=== PATIENT | male | born 1950 | race Caucasian/White ===

== ENCOUNTER 2017-07-20 15:11 | Emergency (ER) | payer OTHER, BC ==
[2017-07-20 15:28] VITALS: BMI 23.3
--- NOTE | 2017-07-20 15:28 | PDOC ---
History of Present Illness - General History Source: Patient Exam Limitations: No Limitations - History of Present Illness Initial Comments: 07/20/17 15:39 The patient is a 67 year old male, with a significant past medical history of mantle cell lymphoma (last chemo treatment in 10/2016), HTN, and hypercholesterolemia who presents to the emergency department s/p mechanical fall over the curb. The patient reports falling and tripping over a curb earlier today, injuring his bilateral knees, bilateral hands, and head. He denies any LOC. He notes he is not up to date on his tetanus shot. He denies any recent fevers, chills, headache or dizziness. He denies any recent nausea, vomit, diarrhea or constipation. He denies any recent chest pain or shortness of breath. He denies any recent dysuria, frequency, urgency or hematuria. Allergies: NKA Past surgical history: None reported. Social History: Former smoker. Denies EtOH use and recreational drug use. Oncologist: DrDanika Murray PCP: <Wesly Vega - Last Filed: 07/20/17 16:45> <Jarret Spence - Last Filed: 07/20/17 18:28> - General Chief Complaint: Injury Stated Complaint: FALL Time Seen by Provider: 07/20/17 15:27 Past History <Wesly Vega - Last Filed: 07/20/17 16:45> - Past Medical History Cancer: Yes (LYMPHOMA) HTN: Yes Hypercholesterolemia: Yes - Suicide/Smoking/Psychosocial Hx Smoking Status: Yes Smoking History: Never smoked Number of Cigarettes Smoked Daily: 5 Hx Alcohol Use: No Drug/Substance Use Hx: No Substance Use Type: None <Jarret Spence - Last Filed: 07/20/17 18:28> - Past Medical History Allergies/Adverse Reactions: Allergies Allergy/AdvReac Type Severity Reaction Status Date / Time No Known Allergies Allergy Verified 06/23/16 10:23 Home Medications: Ambulatory Orders Amlodipine Besylate 5 mg PO DAILY 07/20/17 Lisdexamfetamine Dimesylate [Vyvanse] 10 mg PO DAILY 07/20/17 Rosuvastatin Calcium [Crestor] 10 mg PO DAILY 07/20/17 Vit B12/Intrinsic Fact/Folate [Intrinsi R79-Dhevea Tablet] 1 each PO DAILY 07/20 Review of Systems - Review of Systems Able to Perform ROS?: Yes Comments:: 07/20/17 15:39 GENERAL/CONSTITUTIONAL: No fever or chills. No weakness. HEAD, EYES, EARS, NOSE AND THROAT: No change in vision. No ear pain or discharge. No sore throat. CARDIOVASCULAR: No chest pain or shortness of breath. RESPIRATORY: No cough, wheezing, or hemoptysis. GASTROINTESTINAL: No nausea, vomiting, diarrhea or constipation. GENITOURINARY: No dysuria, frequency, or change in urination. MUSCULOSKELETAL: +bilateral hand/knee pain. No joint or muscle swelling or pain. No neck or back pain. SKIN: No rash NEUROLOGIC: +head trauma. No headache, vertigo, loss of consciousness, or change in strength/sensation. ENDOCRINE: No increased thirst. No abnormal weight change. HEMATOLOGIC/LYMPHATIC: No anemia, easy bleeding, or history of blood clots. ALLERGIC/IMMUNOLOGIC: No hives or skin allergy. <Wesly Vega - Last Filed: 07/20/17 16:45> *Physical Exam - Vital Signs Last Vital Signs Temp Pulse Resp BP Pulse Ox 98.3 F 112 H 148/92 98 07/20/17 15:15 07/20/17 15:15 07/20/17 15:15 07/20/17 15:15 - Physical Exam Comments: 07/20/17 15:42 GENERAL: Awake, alert, and fully oriented, in no acute distress HEAD: No signs of trauma EYES: PERRLA, EOMI, sclera anicteric, conjunctiva clear ENT: Auricles normal inspection, hearing grossly normal, nares patent, oropharynx clear without exudates. Moist mucosa NECK: Normal ROM, supple, no lymphadenopathy, JVD, or masses LUNGS: Breath sounds equal, clear to auscultation bilaterally. No wheezes, and no crackles HEART: Regular rate and rhythm, normal S1 and S2, no murmurs, rubs or gallops ABDOMEN: Soft, nontender, normoactive bowel sounds. No guarding, no rebound. No masses EXTREMITIES: Normal range of motion, no edema. No clubbing or cyanosis. No cords, erythema, or tenderness NEUROLOGICAL: Cranial nerves II through XII grossly intact. Normal speech, normal gait SKIN: Abrasion both knees and both hands. Large hematoma on the right side of the head with abrasion. Axillary area of the right side of his head. <Wesly Vega - Last Filed: 07/20/17 16:45> Heart Score/ECG Review - ECG Impressions Comment:: 07/20/17 16:45 EKG impressions reported by : Sinus tachycardia at 106 bpm <Wesly Vega - Last Filed: 07/20/17 16:45> Medical Decision Making - Medical Decision Making 07/20/17 15:42 Patient refusing tetanus shot. <Wesly Vega - Last Filed: 07/20/17 16:45> - Medical Decision Making 07/20/17 17:50 Patient has boxers fracture left hand by my interpretation. Actually transverse fracture through the shaft of the Metacarpal #5 Left Hand. Ulnar Gutter Splint applied good vascular flow before and after application. <Jarret Spence - Last Filed: 07/20/17 18:28> *DC/Admit/Observation/Transfer - Attestations Scribe Attestion: 07/20/17 15:39 Documentation prepared by Wesly Vega, acting as medical dermatologist for Jarret Spence MD. <Wesly Vega - Last Filed: 07/20/17 16:45> - Discharge Dispostion Admit: No - Attestations Physician Attestion: 07/20/17 15:27 I, Dr. Jarret Spence, attest that this document has been prepared under my direction and personally reviewed by me in its entirety. I further attest, that it accurately reflects all work, treatment, procedures and medical decision -making performed by me. <Jarret Spence - Last Filed: 07/20/17 18:28> Diagnosis at time of Disposition: Closed boxer's fracture Qualifiers: Encounter type: initial encounter Qualified Code(s): S62.339A - Displaced fracture of neck of unspecified metacarpal bone, initial encounter for closed fracture - Discharge Dispostion Disposition: HOME Condition at time of disposition: Improved - Referrals Referrals: Slade Dior [Primary Care Provider] - Navin Waddell MD [Staff Physician] - - Patient Instructions Printed Discharge Instructions: DI for Boxer's Fracture Additional Instructions: Mr Mercy Gambino this happened to you today. Please follow up with Dr. Waddell ( Orthopedics). Return to us if worse or new symptoms occur. Wear the splint and sling until you see ortho Best- Dr. Jarret Spence - Post Discharge Activity
[2017-07-20] MEDS ORDERED: BACITRACIN 0.9 GM PACKET ONE (16:49)
[2017-07-20 18:57] VITALS: BP 140/89; PULSE 94; TEMP 98.9
--- NOTE | 2017-07-24 11:41 | EKG ---
Test Reason : Blood Pressure : / mmHG Vent. Rate : 106 BPM Atrial Rate : 106 BPM P-R Int : 144 ms QRS Dur : 080 ms QT Int : 326 ms P-R-T Axes : 050 088 046 degrees QTc Int : 433 ms SINUS TACHYCARDIA OTHERWISE NORMAL ECG WHEN COMPARED WITH ECG OF 23-JUN-2016 10:53, VENT. RATE HAS INCREASED BY 40 BPM Confirmed by PHILIPPE PETERSON MD ([id number]) on 07/24/2017 11:40:54 AM Referred By: Confirmed By:PHILIPPE PETERSON MD
== END 2017-07-20 18:58 | disposition home or self-care (01) ==
LOC: JER 15:11
PROC: 2W3DX1Z Immobilization of Left Lower Arm using Splint (ICD-10-PCS; principal; 2017-07-20)
DX: S62.337A Displaced fracture of neck of fifth metacarpal bone, left hand, initial encounter for closed fracture (principal); W10.1XXA Fall (on)(from) sidewalk curb, initial encounter; Y93.89 Activity, other specified; Y92.480 Sidewalk as the place of occurrence of the external cause; Y99.8 Other external cause status; I10 Essential (primary) hypertension; E78.00 Pure hypercholesterolemia, unspecified; C83.10 Mantle cell lymphoma, unspecified site
CPT/HCPCS: 29125; 70450-TC; 73130-TC-LT; 73130-TC-RT; 73562-TC-LT; 73562-TC-RT; 93005; 93010; 99282-25

== ENCOUNTER 2017-08-18 01:04 | Emergency (ER) | payer OTHER, BC ==
[2017-08-18 01:09] VITALS: BP 128/82; PULSE 100; TEMP 98; BMI 23.7
--- NOTE | 2017-08-18 01:11 | PDOC ---
History of Present Illness - General History Source: Patient, Family Exam Limitations: No Limitations - History of Present Illness Initial Comments: 08/18/17 01:45 The patient is a 67 year old male, with a significant past medical history of mantle cell lymphoma (last chemo treatment on 10/2016), hypertension, hypercholesterolemia , who presents to the emergency department status post fall this evening in a parking out. As per the patient's they were leaving dinner and were walking to their car across the parking lot when the patient walked ahead of her. He then tripped and lost his balance, falling backwards, and hitting the back of his head on the pavement. As per the patients this is his second fall in 2 weeks. He has hit the same area on the back of his head in both falls. She reports that she has some neurologic and gait problems and has been recently diagnosed with follicular cancer. The patient denies chest pain, shortness of breath, or palpitation Allergies: NKA. Past surgical history: None reported Social history: Never smoked PCP:Dr. Dior Oncologist: Dr. Dillon Murray <Maria Isabel Evans - Last Filed: 08/18/17 01:45> <Aixa Lugo - Last Filed: 08/18/17 16:30> - General Chief Complaint: Injury Stated Complaint: FALL Time Seen by Provider: 08/18/17 01:10 Past History <Maria Isabel Evans - Last Filed: 08/18/17 01:45> - Past Medical History Cancer: Yes (LYMPHOMA) COPD: No HTN: Yes Hypercholesterolemia: Yes - Suicide/Smoking/Psychosocial Hx Smoking Status: Yes Smoking History: Never smoked Have you smoked in the past 12 months: No Number of Cigarettes Smoked Daily: 5 If you are a former smoker, when did you quit?: 6 yrs Information on smoking cessation initiated: No Hx Alcohol Use: No Drug/Substance Use Hx: No Substance Use Type: None <Aixa Lugo - Last Filed: 08/18/17 16:30> - Past Medical History Allergies/Adverse Reactions: Allergies Allergy/AdvReac Type Severity Reaction Status Date / Time No Known Allergies Allergy Verified 08/18/17 01:08 Home Medications: Ambulatory Orders Amlodipine Besylate 5 mg PO DAILY 07/20/17 Lisdexamfetamine Dimesylate [Vyvanse] 10 mg PO DAILY 07/20/17 Rosuvastatin Calcium [Crestor] 10 mg PO DAILY 07/20/17 Vit B12/Intrinsic Fact/Folate [Intrinsi W15-Wlzmbj Tablet] 1 each PO DAILY 07/20 Bacitracin/Polymyxin B Sulfate [Bacitracin-Polymyxin Ointment] 14.17 gm TP BID # 1 tube 08/18/17 Review of Systems - Review of Systems Able to Perform ROS?: Yes Comments:: 08/18/17 01:46 CONSTITUTIONAL: Absent: fever, no chills, no fatigue EYES: Absent: visual changes ENT: Absent: ear pain, no sore throat CARDIOVASCULAR: Absent: chest pain, no palpitations RESPIRATORY: Absent: cough, no SOB GI: Absent: abdominal pain, no nausea, no vomiting, no constipation, no diarrhea GENITOURINARY: Absent: dysuria, no frequency, no hematuria MUSCULOSKELETAL: Absent: back pain, no arthralgia, no myalgia SKIN:+bleeding to back of the head status post fall Absent: rash NEURO: Absent: headache <Maria Isabel Evans - Last Filed: 08/18/17 01:45> *Physical Exam - Vital Signs Last Vital Signs Temp Pulse Resp BP Pulse Ox 98.0 F 100 H 20 128/82 99 08/18/17 01:08 08/18/17 01:08 08/18/17 01:08 08/18/17 01:08 08/18/17 01:08 - Physical Exam Comments: 08/18/17 01:46 GENERAL: Well-appearing, well-nourished. No apparent distress. HEENT: Normocephalic, atraumatic. PERRL, EOM intact. CARDIOVASCULAR: Normal S1, S2. Regular rate and rhythm. PULMONARY: Clear to auscultation bilaterally. ABDOMEN: Soft, non-distended, non-tender. EXTREMITIES: Normal ROM in all four extremities. No gross deformities. SKIN: +4 cm laceration to the back of the head Warm, dry. No rash NEUROLOGICAL: +gait problems <Maria Isabel Evans - Last Filed: 08/18/17 01:45> - Vital Signs Last Vital Signs Temp Pulse Resp BP Pulse Ox 98.0 F 100 H 20 128/82 99 08/18/17 01:08 08/18/17 01:08 08/18/17 01:08 08/18/17 01:08 08/18/17 01:08 <Aixa Lugo - Last Filed: 08/18/17 16:30> Procedures - Laceration/Wound Repair Occipital Wound Length: 2.6 to 5.0 cm Wound Explored: clean Wound's Depth, Shape: linear Irrigated w/ Saline: Yes Betadine Prep: No Amount of Anesthetic (ccs): 5 Wound Debrided: minimal Wound Repaired With: Sutures Suture Size/Type: 3:0 Number of Sutures: 6 Layer Closure: No Sterile Dressing Applied: No Splint Applied: No Sling Applied: No <Aixa Lugo - Last Filed: 08/18/17 16:30> *DC/Admit/Observation/Transfer - Attestations Scribe Attestion: 08/18/17 01:46 Documentation prepared by THU Floyd, acting as medical clerical assistant for Aixa Lugo MD. <Maria Isabel Evans - Last Filed: 08/18/17 01:45> <Aixa Lugo - Last Filed: 08/18/17 16:30> Diagnosis at time of Disposition: Head trauma, Occipital scalp laceration - Discharge Dispostion Disposition: HOME Condition at time of disposition: Improved - Prescriptions Prescriptions: Bacitracin/Polymyxin B Sulfate [Bacitracin-Polymyxin Ointment] 14.17 gm TP BID # 1 tube - Referrals Referrals: Slade Dior [Non Staff, Medical] - - Patient Instructions Printed Discharge Instructions: DI for Laceration Repair -- Simple, DI for Closed Head Injury Additional Instructions: Return to the emergency department immediately with ANY new, persistent or worsening symptoms including any redness, bleeding, purulent discharge, swelling or other concerns. Keep the area clean and dry for 48 hours. Afterwards he may clean gently with soap and water. Apply bacitracin twice a day. Keep the area away from the sun for the next 9 months, please use sunscreen and wear a hat if you need to be in the sun to improve appearance of the scar. Return in 7-10 days for suture removal. You MUST call and follow up with your doctor tomorrow for further evaluation of your symptoms. Results were discussed with you. Please make sure your doctor reviews the results of your emergency evaluation. Print Language: PORTUGUESE
--- NOTE | 2017-08-18 02:17 | PDOC ---
*Physical Exam - Vital Signs Last Vital Signs Temp Pulse Resp BP Pulse Ox 98.0 F 100 H 20 128/82 99 08/18/17 01:08 08/18/17 01:08 08/18/17 01:08 08/18/17 01:08 08/18/17 01:08 Medical Decision Making - Medical Decision Making 08/18/17 02:16 pt signed out to me from Dr. Lugo pt is a 67y M hx of mantle cell lymphoma, htn, hl, presents s/p mechanical fall as they were leaving a restaurant. Tripped and fell, falling backards and hitting his head. No LOC, headache, vision changes, numbness/tingling weakness. Pt is awaiting CT laceration was closed by Dr. Lugo 08/18/17 02:23 ct head and cspine neg will dc the pt home with pmd fu return in 7-10 days for suture removal I discussed the physical exam findings, ancillary test results and final diagnoses with the patient. I answered all of the patient's questions. The patient was satisfied with the care received and felt comfortable with the discharge plan and treatment plan. The patient will call their primary care physician within 24 hours to arrange follow-up and will return to the Emergency Department with any new, persistent or worsening symptoms. *DC/Admit/Observation/Transfer Diagnosis at time of Disposition: Head trauma Qualifiers: Encounter type: initial encounter Qualified Code(s): S09.90XA - Unspecified injury of head, initial encounter Occipital scalp laceration Qualifiers: Encounter type: initial encounter Qualified Code(s): S01.01XA - Laceration without foreign body of scalp, initial encounter - Discharge Dispostion Disposition: HOME Condition at time of disposition: Improved Admit: No - Referrals Referrals: Slade Dior [Non Staff, Medical] - - Patient Instructions Printed Discharge Instructions: DI for Closed Head Injury, DI for Laceration Repair -- Simple Additional Instructions: Return to the emergency department immediately with ANY new, persistent or worsening symptoms including any redness, bleeding, purulent discharge, swelling or other concerns. Keep the area clean and dry for 48 hours. Afterwards he may clean gently with soap and water. Apply bacitracin twice a day. Keep the area away from the sun for the next 9 months, please use sunscreen and wear a hat if you need to be in the sun to improve appearance of the scar. Return in 7-10 days for suture removal. You MUST call and follow up with your doctor tomorrow for further evaluation of your symptoms. Results were discussed with you. Please make sure your doctor reviews the results of your emergency evaluation. Print Language: MONGOLIAN - Post Discharge Activity
== END 2017-08-18 02:39 | disposition home or self-care (01) ==
LOC: JER 01:04
PROC: 0HQ0XZZ Repair Scalp Skin, External Approach (ICD-10-PCS; principal; 2017-08-18)
DX: S01.01XA Laceration without foreign body of scalp, initial encounter (principal); W18.39XA Other fall on same level, initial encounter; Y93.89 Activity, other specified; Y92.481 Parking lot as the place of occurrence of the external cause; Y99.8 Other external cause status; C82.90 Follicular lymphoma, unspecified, unspecified site
CPT/HCPCS: 12002-25; 70450-TC; 72125-TC; 99281-25

== ENCOUNTER 2018-12-12 11:01 | Emergency (ER) | payer OTHER, BC ==
[2018-12-12 11:10] VITALS: TEMP 97.3; BMI 24.1
[2018-12-12 12:59] LABS: BASO % 0.8 % (0-2.0); EOS % 2.4 % (0-4.5); HEMATOCRIT 37.1 % (35.4-49); HEMOGLOBIN 12.6 GM/dL (11.7-16.9); LYMPH % 12.3 % (8-40); MCH 29.7 pg (25.7-33.7); MCHC 34.1 g/dl (32.0-35.9); MEAN CELL VOLUME 87.1 fl (80-96); MEAN PLT VOLUME 7.5 fl (7.5-11.1); MONO % 6.7 % (3.8-10.2); NEUT % 77.8 % (42.8-82.8); PLATELET COUNT 223 K/MM3 (134-434); RBC 4.25 M/mm3 (4.00-5.60); RDW 13.4 % (11.9-15.9); WHITE BLOOD COUNT 7.2 K/mm3 (4.0-10.0)
--- NOTE | 2018-12-12 13:07 | PDOC ---
History of Present Illness - General Chief Complaint: Hematuria Stated Complaint: BLOOD IN URINE Time Seen by Provider: 12/12/18 11:25 History Source: Patient, Spouse Exam Limitations: No Limitations Past History - Past Medical History Allergies/Adverse Reactions: Allergies Allergy/AdvReac Type Severity Reaction Status Date / Time No Known Allergies Allergy Verified 08/18/17 01:08 Home Medications: Ambulatory Orders Rosuvastatin Calcium [Crestor] 10 mg PO DAILY 07/20/17 Vit B12/Intrinsic Fact/Folate [Intrinsi F83-Qivurw Tablet] 1 each PO DAILY 07/20 Finasteride [Proscar] 0 mg PO DAILY 12/12/18 Cancer: Yes (LYMPHOMA) COPD: No HTN: Yes Hypercholesterolemia: Yes - Immunization History Immunization Up to Date: Yes - Suicide/Smoking/Psychosocial Hx Smoking Status: Yes Smoking History: Former smoker Have you smoked in the past 12 months: No Number of Cigarettes Smoked Daily: 5 If you are a former smoker, when did you quit?: 2013 Information on smoking cessation initiated: No Hx Alcohol Use: No Drug/Substance Use Hx: No Substance Use Type: None *Physical Exam - Vital Signs Last Vital Signs Temp Pulse Resp BP Pulse Ox 97.3 F L 98 H 17 122/77 98 12/12/18 11:04 12/12/18 11:04 12/12/18 11:04 12/12/18 11:04 12/12/18 11:04 - Physical Exam General Appearance: No: Apparent Distress Respiratory/Chest: positive: Lungs Clear, Normal Breath Sounds. negative: Respiratory Distress Cardiovascular: positive: Regular Rhythm, Regular Rate, S1, S2. negative: Murmur Gastrointestinal/Abdominal: positive: Normal Bowel Sounds, Soft. negative: Tender, Distended, Guarding, Rebound Rectal Exam: positive: other (+brown stool with blood, no melena, no hemorrhoids noted). negative: melena, hemorrhoids Musculoskeletal: negative: CVA Tenderness Integumentary: positive: Normal Color Neurologic: positive: Alert, Normal Mood/Affect ED Treatment Course - LABORATORY CBC & Chemistry Diagram: 12/12/18 17:50 12/12/18 12:17 - ADDITIONAL ORDERS Additional order review: Laboratory Results 12/12/18 11:52 Stool Occult Blood Positive Medical Decision Making - Medical Decision Making 68 y/o M with hx of mantle cell lymphoma dx 2014 (in remission), follicular cell lymphoma dx 2018 s/p XRT 07/2018, HTN, HLD presents with dark urine x 1 week, but was concerned as it was urine was really dark today. Also noted patient with spots of blood on diaper 2 days ago and again yesterday. Patient had visiting nurse who evaluated patient and did not note any hemorrhoids, but advised patient get evaluated. Denies fever, chills, sob, cp, abd pain, n/v/d, dysuria, hematuria. Last colonscopy was 4 years ago which was normal per patient's . Patient is not taking any blood thinners Rectal bleeding, dark urine Plan: Labs, UA, UCx, coags, T&S, guaiac 12/12/18 13:01 Labs reviewed - Hgb and Hct stable Guaiac positive UA negative for infection Notable for elevated liver enzymes D/W, Dr. Arroyo, who is covering for patient's PCP, Dr. Dior - per her review of records, last labs drawn on 10/16/18 showed normal LFTs Also d/w oncologist, Dr. Kinney (covering for patient's oncologist, Dr. Murray, in [place]) - also mentions LFTs from last year were normal; LFTs are unlikely to be elevated from patient's cancer Will get RUQ sono to further assess In regarding to rectal bleeding, patient appears hemodynamically stable; will get repeat CBC and if stable, likely DC with outpatient f/u with his PCP 12/12/18 17:01 RUQ sono shows gallstones; CBD is normal in size Patient with no abdominal pain, n/v; patient had tray of food which he tolerated well Not suspicious for obstructive pathology Will refer to GI for further eval of sxs Repeat CBC shows stable Hgb/Hct Patient has f/u at [place]; stable for dc Return precautions were given 12/12/18 18:40 *DC/Admit/Observation/Transfer Diagnosis at time of Disposition: Rectal bleeding - Discharge Dispostion Disposition: HOME Condition at time of disposition: Stable Decision to Admit order: No - Referrals Referrals: Slade Dior [Primary Care Provider] - 2 Days Marilynn Graves DO [Staff Physician] - 2 Days - Patient Instructions Printed Discharge Instructions: DI for Rectal Bleeding, DI for Gallstones Additional Instructions: Thank you for choosing [facility]. It was a pleasure taking care of you. You were incidentally noted with elevated liver enzymes You had ultrasound done which showed gallstones You were referred to GI doctor for further evaluation Please be sure to also follow-up with your PCP and oncologist. Return to the Emergency Department if your symptoms worsen or persist, you have fever, shortness of breath, chest pain, severe abdominal pain, vomiting, change in color of skin (appearing yellow), heavy rectal bleeding, black stools or other concerning symptoms. - Post Discharge Activity
[2018-12-12 13:26] LABS: ALBUMIN 3.5 g/dl (3.4-5.0); ALK PHOS 203 U/L (45-117); ANION GAP 5 MMOL/L (8-16); BILIRUBIN,TOTAL 0.9 mg/dL (0.2-1); BLOOD UREA NITROGEN 13 mg/dL (7-18); CHLORIDE 107 mmol/L (98-107); CO2 28 mmol/L (21-32); CREATININE 0.9 mg/dL (0.55-1.3); GLUCOSE,RANDOM 96 mg/dL (74-106); SGOT/AST 237 U/L (15-37); SGPT/ALT 363 U/L (13-61); SODIUM 139 mmol/L (136-145); TOT PROT 7.1 g/dl (6.4-8.2)
[2018-12-12 13:46] LABS: URINE APPEARANCE CLEAR; URINE BILIRUBIN 1+ (NEGATIVE); URINE COLOR DK YELLOW; URINE GLUCOSE (UA) NEGATIVE (NEGATIVE); URINE KETONE TRACE (NEGATIVE); URINE LEUK ESTERASE NEGATIVE (NEGATIVE); URINE NITRITE NEGATIVE (NEGATIVE); URINE PROTEIN NEGATIVE (NEGATIVE)
[2018-12-12 14:46] LABS: INR 0.99 (0.83-1.09); PROTHROMBIN TIME (PATIENT) 11.7 SEC (9.7-13.0)
[2018-12-12 14:49] LABS: ACTIVATED PTT 26.3 SECONDS (25.2-36.5)
[2018-12-12] MEDS ORDERED: SODIUM CHLORIDE 0.9% 1000 ML INFUS.BAG IV ONE (16:21)
--- NOTE | 2018-12-12 17:42 | PDOC ---
*Physical Exam - Vital Signs Last Vital Signs Temp Pulse Resp BP Pulse Ox 97.3 F L 98 H 17 122/77 98 12/12/18 11:04 12/12/18 11:04 12/12/18 11:04 12/12/18 11:04 12/12/18 11:04 - Physical Exam General Appearance: Yes: Nourished Respiratory/Chest: positive: Lungs Clear, Normal Breath Sounds Cardiovascular: positive: Regular Rhythm, Regular Rate, S1, S2 Gastrointestinal/Abdominal: positive: Normal Bowel Sounds, Flat, Soft. negative : Tender Musculoskeletal: positive: Normal Inspection Extremity: positive: Normal Capillary Refill, Normal Inspection, Normal Range of Motion ED Treatment Course - LABORATORY CBC & Chemistry Diagram: 12/12/18 12:17 12/12/18 12:17 - ADDITIONAL ORDERS Additional order review: Laboratory Results 12/12/18 12/12/18 12/12/18 13:21 12:17 12:17 PT with INR 11.70 INR 0.99 PTT (Actin FS) 26.3 Sodium Potassium Chloride Carbon Dioxide Anion Gap BUN Creatinine Creat Clearance w eGFR Random Glucose Calcium Total Bilirubin AST ALT Alkaline Phosphatase Total Protein Albumin Urine Color Dk yellow Urine Appearance Clear Urine pH 5.0 Ur Specific [place] 1.022 Urine Protein Negative Urine Glucose (UA) Negative Urine Ketones Trace H Urine Blood Negative Urine Nitrite Negative Urine Bilirubin 1+ H Urine Urobilinogen 1.0 Ur Leukocyte Esterase Negative Stool Occult Blood Blood Type A POSITIVE Antibody Screen Negative 12/12/18 12/12/18 12:17 11:52 PT with INR INR PTT (Actin FS) Sodium 139 Potassium 4.0 Chloride 107 Carbon Dioxide 28 Anion Gap 5 L BUN 13 Creatinine 0.9 Creat Clearance w eGFR 83.67 Random Glucose 96 Calcium 9.0 Total Bilirubin 0.9 AST 237 H ALT 363 H Alkaline Phosphatase 203 H Total Protein 7.1 Albumin 3.5 Urine Color Urine Appearance Urine pH Ur Specific [place] Urine Protein Urine Glucose (UA) Urine Ketones Urine Blood Urine Nitrite Urine Bilirubin Urine Urobilinogen Ur Leukocyte Esterase Stool Occult Blood Positive Blood Type Antibody Screen 12/12/18 12:17 RBC 4.25 MCV 87.1 MCHC 34.1 RDW 13.4 MPV 7.5 Neutrophils % 77.8 D Lymphocytes % 12.3 D Monocytes % 6.7 Eosinophils % 2.4 Basophils % 0.8 *DC/Admit/Observation/Transfer - Referrals Referrals: Slade Dior [Primary Care Provider] - - Patient Instructions - Post Discharge Activity
[2018-12-12 18:09] LABS: BASO % 1.2 % (0-2.0); EOS % 3.9 % (0-4.5); HEMATOCRIT 35.9 % (35.4-49); HEMOGLOBIN 12.4 GM/dL (11.7-16.9); LYMPH % 22.5 % (8-40); MCH 30.1 pg (25.7-33.7); MCHC 34.7 g/dl (32.0-35.9); MEAN CELL VOLUME 86.8 fl (80-96); MEAN PLT VOLUME 7.3 fl (7.5-11.1); MONO % 7.9 % (3.8-10.2); NEUT % 64.5 % (42.8-82.8); PLATELET COUNT 211 K/MM3 (134-434); RBC 4.13 M/mm3 (4.00-5.60); RDW 13.1 % (11.9-15.9); WHITE BLOOD COUNT 6.8 K/mm3 (4.0-10.0)
[2018-12-12 18:50] VITALS: BP 158/88; PULSE 89
== END 2018-12-12 18:52 | disposition home or self-care (01) ==
LOC: JER 11:01
DX: K62.5 Hemorrhage of anus and rectum (principal); K80.20 Calculus of gallbladder without cholecystitis without obstruction; I10 Essential (primary) hypertension; E78.5 Hyperlipidemia, unspecified; C82.90 Follicular lymphoma, unspecified, unspecified site; Z85.72 Personal history of non-Hodgkin lymphomas; Z87.891 Personal history of nicotine dependence
CPT/HCPCS: 36415; 76705-TC; 80053; 81003; 82272; 85025; 85610; 85730; 86850; 86900; 86901; 87086; 99282-25

== ENCOUNTER 2019-03-09 21:18 | Inpatient (IN) | payer OTHER, BC ==
--- NOTE | 2019-03-10 00:09 | PDOC ---
Documentation entered by Tuan Hayes SCRIBE, acting as scribe for Aixa Lugo MD. Aixa Lugo MD: This documentation has been prepared by the Freddy simon Joel, SCRIBE, under my direction and personally reviewed by me in its entirety. I confirm that the documentation accurately reflects all work, treatment, procedures, and medical decision making performed by me. History of Present Illness - General Stated Complaint: FELL Time Seen by Provider: 03/09/19 21:40 History Source: Patient, Spouse Exam Limitations: No Limitations - History of Present Illness Initial Comments: 03/09/19 21:53 The patient is a 69 year old male with a significant PMH of mantle cell lymphoma , follicular cell lymphoma (s/p XRT in 2018), HTN, hyperlipidemia, and legal R eye blindness who presents to the emergency department s/p fall prior to arrival. The patients states the patient was walking to the bathroom when he fell. He denies hitting his head or LOC. She notes the patient often ambulates very little and is usually wheelchair bound. The patient denies any pain or other complaints. The patient denies chest pain, shortness of breath, headache and dizziness. Denies fever, chills, nausea, vomit, diarrhea and constipation. Denies dysuria, frequency, urgency and hematuria. Allergies: NKA Past surgical history: None reported. Social history: Former smoker. No reported alcohol or drug use. PCP: [facility] Past History - Past Medical History Allergies/Adverse Reactions: Allergies Allergy/AdvReac Type Severity Reaction Status Date / Time No Known Allergies Allergy Verified 08/18/17 01:08 Home Medications: Ambulatory Orders Rosuvastatin Calcium [Crestor] 10 mg PO DAILY 07/20/17 Vit B12/Intrinsic Fact/Folate [Intrinsi T33-[id number] Tablet] 1 each PO DAILY 07/20 Finasteride [Proscar] 0 mg PO DAILY 12/12/18 Cancer: Yes (LYMPHOMA) COPD: No HTN: Yes Hypercholesterolemia: Yes - Immunization History Immunization Up to Date: Yes - Suicide/Smoking/Psychosocial Hx Smoking Status: Yes Smoking History: Former smoker Have you smoked in the past 12 months: No Number of Cigarettes Smoked Daily: 5 If you are a former smoker, when did you quit?: 2013 Hx Alcohol Use: No Drug/Substance Use Hx: No Substance Use Type: None Review of Systems - Review of Systems Able to Perform ROS?: Yes Comments:: 03/09/19 21:54 GENERAL/CONSTITUTIONAL: No fever or chills. No weakness. HEAD, EYES, EARS, NOSE AND THROAT: No change in vision. No ear pain or discharge. No sore throat. CARDIOVASCULAR: No chest pain or shortness of breath. RESPIRATORY: No cough, wheezing, or hemoptysis. GASTROINTESTINAL: No nausea, vomiting, diarrhea or constipation. GENITOURINARY: No dysuria, frequency, or change in urination. MUSCULOSKELETAL: No joint or muscle swelling or pain. No neck or back pain. SKIN: No rash NEUROLOGIC: No headache, vertigo, loss of consciousness, or change in strength/ sensation. ENDOCRINE: No increased thirst. No abnormal weight change. HEMATOLOGIC/LYMPHATIC: No anemia, easy bleeding, or history of blood clots. ALLERGIC/IMMUNOLOGIC: No hives or skin allergy. *Physical Exam - Physical Exam Comments: 03/09/19 21:54 GENERAL: Awake, alert, and fully oriented, in no acute distress HEAD: No signs of trauma EYES: Pinpoint pupils, reactive. Legally blind in R eye. EOMI, sclera anicteric , conjunctiva clear ENT: Auricles normal inspection, hearing grossly normal, nares patent, oropharynx clear without exudates. Moist mucosa NECK: Normal ROM, supple, no lymphadenopathy, JVD, or masses. No cervical midline tenderness. LUNGS: Breath sounds equal, clear to auscultation bilaterally. No wheezes, and no crackles HEART: Regular rate and rhythm, normal S1 and S2, no murmurs, rubs or gallops ABDOMEN: Soft, nontender, normoactive bowel sounds. No guarding, no rebound. No masses. EXTREMITIES: Normal range of motion, no edema. No clubbing or cyanosis. No cords, erythema, or tenderness. NEUROLOGICAL: (+) Chronic bilateral LE weakness. Cranial nerves II through XII grossly intact. Normal speech. SKIN: (+) L hand ecchymosis to dorsal aspect. (+) Lesion on R forearm. (+) Chronic plaque like skin lesion to R foot. No hematomas. No abrasions. No lacerations. ED Treatment Course - LABORATORY CBC & Chemistry Diagram: 03/10/19 00:35 03/10/19 00:35 Medical Decision Making - Medical Decision Making 03/10/19 00:06 69-year-old male brought in by ambulance from home after he fell walking to the bathroom to take a shower. Patient arrives in his bath robe and is in no acute distress. The stated upon arrival that she wanted him admitted to a facility because she can no longer care for him. She said she recently was diagnosed with cancer herself and she is going for an infusion tomorrow and cannot care for him anymore. She states that the patient is not ambulatory anymore and requires a wheelchair. She states that [facility] and at that time they were given several options for further care for his cancer treatment ,but she said the options were too invasive and so they declined. The patient was seen here in November and found have elevated LFTs and some blood in his stool The states that he does have lesions in his liver. When asked, patient states he did not have any specific complaints. Review of systems negative for fever or chills or nausea or vomiting or diarrhea or chest pain or shortness of breath or cough 03/10/19 00:09 said that he fell and he hit his head, so a CAT scan of the head and cervical spine were done and there were no acute findings. CT scan of the head did not show any acute infarct or bleed or skull fracture. CT of the cervical spine was negative for subluxation or acute fracture 03/10/19 00:10 plan labs will be obtained to see if this any acute metabolic disturbance and also consult will have to obtained in the morning with the social science analyst for placement options 03/10/19 02:11 pt found to have GI bleed with hbg=7.9 and hct=22 pt admitted for blood transfusion /med surg *DC/Admit/Observation/Transfer Diagnosis at time of Disposition: GI bleed Qualifiers: GI bleed type/associated pathology: unspecified gastrointestinal hemorrhage type Qualified Code(s): K92.2 - Gastrointestinal hemorrhage, unspecified Lymphoma Qualifiers: Lymphoma type: unspecified type Lymphoma site: unspecified region Qualified Code(s): C85.90 - Non-Hodgkin lymphoma, unspecified, unspecified site Anemia Qualifiers: Anemia type: other cause Other causes of anemia: other cause, not classified Qualified Code(s): D64.89 - Other specified anemias - Discharge Dispostion Condition at time of disposition: Fair Decision to Admit order: Yes - Referrals - Patient Instructions - Post Discharge Activity
[2019-03-10 00:59] LABS: BASO % 1.1 % (0-2.0); EOS % 2.2 % (0-4.5); HEMATOCRIT 22.4 % (35.4-49); HEMOGLOBIN 7.9 GM/dL (11.7-16.9); LYMPH % 18.5 % (8-40); MCH 36.6 pg (25.7-33.7); MCHC 35.4 g/dl (32.0-35.9); MEAN CELL VOLUME 103.3 fl (80-96); MONO % 8.1 % (3.8-10.2); NEUT % 70.1 % (42.8-82.8); PLATELET COUNT 216 K/MM3 (134-434); RBC 2.17 M/mm3 (4.00-5.60); RDW 14.9 % (11.9-15.9); WHITE BLOOD COUNT 7.5 K/mm3 (4.0-10.0)
[2019-03-10] MEDS: SODIUM CHLORIDE 1,000 ML IV SCH ×3 (01:13→23:59)
[2019-03-10] MEDS ORDERED: PANTOPRAZOLE SODIUM 40 MG VIAL IVPUSH ONE (01:27)
[2019-03-10 01:39] LABS: ALBUMIN 3.4 g/dl (3.4-5.0); BILIRUBIN,TOTAL 1.5 mg/dL (0.2-1); BLOOD UREA NITROGEN 15.3 mg/dL (7-18); CALCIUM 8.7 mg/dL (8.5-10.1); CREATININE 0.9 mg/dL (0.55-1.3); POTASSIUM 3.9 mmol/L (3.5-5.1); TOT PROT 6.3 g/dl (6.4-8.2)
[2019-03-10] MEDS ORDERED: PANTOPRAZOLE SODIUM 40 MG/100 ML BAG IVPB ONE (01:56)
--- NOTE | 2019-03-10 02:24 | PN ---
Teaching Attending Note Name of Resident: Clarence Escamilla ATTENDING PHYSICIAN STATEMENT I saw and evaluated the patient. I reviewed the resident's note and discussed the case with the resident. I agree with the resident's findings and plan as documented. SUBJECTIVE: Patient is a 69 year old [place] with a PMH of Mantle cell lymphoma, Follicular cell lymphoma, HTN, Hematuria, Hyperlipidemia and Legally blind in right eye presents to the ER after a fall. The patients states the patient was walking to the bathroom when he fell. He denies hitting his head or LOC. She notes the patient often ambulates very little and is usually wheelchair bound. The patient denies chest pain, shortness of breath, headache and dizziness. Denies fever, chills, nausea, vomit, diarrhea and constipation. Denies dysuria, frequency, urgency and hematuria. OBJECTIVE: Alert Vital Signs Period Temp Pulse Resp BP Sys/Jimenez Pulse Ox Last 24 Hr 98.9 F 96 20 158/83 95 HEENT: No Jaundice, eye redness or discharge, PERRLA, EOMI. Normocephalic, atraumatic. External ears are normal and hearing is grossly intact. No nasal discharge. Neck: Supple, nontender. No palpable adenopathy or thyromegaly. No JVD Chest: Good effort. Clear to auscultation and percussion. Heart: Regular. No S3, rub or murmur Abdomen: Not distended, soft, nontender and no HSM. No rebound or guarding. Normal bowel sounds. Ext: Peripheral pulses intact. No leg edema. No hemorrhoids on rectal examination. Has blood on the diapers. Skin: Warm and dry. No petechiae or rash. Ecchymosis on left hand and right forearm. Plaque-like skin lesion on right foot. Neuro: Alert. Oriented x3. CN 2-12 grossly intact. Sensation grossly intact in all four extremities; lower extremity weakness and ataxia. Plantar reflexes are flexor. Psych: Appropriate mood and affect. Good insight. Current Medications Generic Name Dose Route Start Last Admin Trade Name Freq PRN Reason Stop Dose Admin Sodium Chloride 1,000 mls @ 125 mls/hr 03/10/19 00:15 03/10/19 01:13 Normal Saline - IV 125 mls/hr ASDIR AMANDA Administration Home Medications Medication Instructions Recorded Rosuvastatin Calcium [Crestor] 10 mg PO DAILY 07/20/17 Vit B12/Intrinsic Fact/Folate 1 each PO DAILY 07/20/17 [Intrinsi R89-Osargp Tablet] Finasteride [Proscar] 0 mg PO DAILY 12/12/18 Abnormal Lab Results 03/10/19 03/10/19 03/10/19 00:35 00:35 00:35 RBC 2.17 L Hgb 7.9 L Hct 22.4 L D MCV 103.3 H MCH 36.6 H D MPV 7.0 L Chloride 108 H Total Bilirubin 1.5 H AST 56 H Total Protein 6.3 L Crossmatch See Detail ASSESSMENT AND PLAN: 1. Fall/GI bleeding - Etiology of fall is unclear. Possibly had a vasovagal event or othrostasis due to symptomatic blood loss anemia. No acute abnormality on noncontrast head CT. Noncontrast C-spine CT didnot show any fracture/ subloxation, but showed two semisolid right pulmonary nodules. Will get lumbosacral MRI to investigate recent frequent falls. Will do neurochecks and implement seizure, fall and aspiration precautions. Anemia may be due to lower GI bleeding. Will keep him NPO. Macrocytosis may be independent of the severe anemia. Will get iron studies, vitamin B12 and folate levels. Transfuse PRBC and give IV iron after confirming intensity of iron deficiency. Consult GI. Continue comprehensive care of all his comorbid conditions. Out patient referral to Pulmonary for further workup of pulmonary nodules. 2. Hypertension - Restart suitable outpatient antihypertensive drugs when clinically appropriate. Revise regimen to ensure [id number] excellent BP control and executive assistant to general counsel patient on the injurious effects of uncontrolled hypertension. Nonpharmacologic measures to control hypertension like weight loss , salt restriction and exercise discussed. Importance of adherence to treatment regimen and attainment of normotension emphasized. 3. DVT prophylaxis - SCD 4. Advance directives - Full code
--- NOTE | 2019-03-10 03:40 | HP ---
CHIEF COMPLAINT: fall PCP: HISTORY OF PRESENT ILLNESS: 69M w/ pmh of mantle cell lymphoma, follicular cell lymphoma(s/p chemotherapy x6 sessions, last in January 2018; stopped due to effects on brain; states that he doesn't need anymore tx), HTN, HLD, h/o +FOBT, blindness in Right eye; BIBA after mechanical fall when walking to the shower, no LOC or hit his head. States that neither his or him had the strength to get back up. Prior to episode, denies NEELY/dizziness/CP/palpitations/SOB. Denies sick contacts. Has fallen 4-5x in the past year w/o LOC. Had colonoscopy last month and noted polyps. Lost 7lbs in 1 year. Never had EGD. Denies chronic NSAID usage. Denies hematemesis, hematachezia, melena. At baseline, has difficulty with ambulation and uses walker, wears a diaper and has a bedside urinal. 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 ER course was notable for: (1) Hgb 7.9, ordered pRBC but not administered Recent Travel: travelled [place], one month prior PAST MEDICAL HISTORY: mantle cell lymphoma, follicular cell lymphoma(s/p chemotherapy x6 sessions, last in January 2018; stopped due to effects on brain; states that he doesn't need anymore tx), HTN, HLD, h/o +FOBT, blindness in Right eye PAST SURGICAL HISTORY: none Social History: Smoking: quit 5ys prior, smoked 10cig/d for 15-20ys Alcohol: social beer drinking Drugs: denies Family History: denies Allergies No Known Allergies Allergy (Verified 08/18/17 01:08) HOME MEDICATIONS: Home Medications Medication Instructions Recorded Rosuvastatin Calcium [Crestor] 10 mg PO DAILY 07/20/17 Vit B12/Intrinsic Fact/Folate 1 each PO DAILY 07/20/17 [Intrinsi [id number]-[id number] Tablet] Finasteride [Proscar] 5 mg PO DAILY 12/12/18 REVIEW OF SYSTEMS CONSTITUTIONAL: lost 7lbs in one year Absent: fever, chills, diaphoresis, generalized weakness, malaise, loss of appetite HEENT: Absent: rhinorrhea, nasal congestion, throat pain, throat swelling, difficulty swallowing, mouth swelling, ear pain, eye pain, visual changes CARDIOVASCULAR: Absent: chest pain, syncope, palpitations, irregular heart rate, lightheadedness , peripheral edema RESPIRATORY: Absent: cough, shortness of breath, dyspnea with exertion, orthopnea, wheezing, stridor, hemoptysis GASTROINTESTINAL: Absent: abdominal pain, abdominal distension, nausea, vomiting, diarrhea, constipation, melena, hematochezia GENITOURINARY: Absent: dysuria, frequency, urgency, hesitancy, hematuria MUSCULOSKELETAL: weakness in the BLE Absent: myalgia, arthralgia, joint swelling, back pain, neck pain SKIN: Absent: rash, itching, pallor HEMATOLOGIC/IMMUNOLOGIC: Absent: easy bleeding, easy bruising, lymphadenopathy, frequent infections ENDOCRINE:unexplained weight loss, Absent: unexplained weight gain NEUROLOGIC: unsteady gait Absent: headache, focal weakness or paresthesias, dizziness, seizure, mental status changes, bladder or bowel incontinence PHYSICAL EXAMINATION Vital Signs - 24 hr 03/09/19 03/10/19 21:30 03:00 Temperature 98.9 F Pulse Rate 96 H Pulse Rate [ 93 H Right] Respiratory 20 20 Rate Blood Pressure 158/83 Blood Pressure 155/85 [Right Arm] O2 Sat by Pulse 95 95 Oximetry (%) GENERAL: Awake, A&Ox3, in no acute distress. HEAD: Normal with no signs of trauma. EYES: Pupils equal, round and reactive to light, extraocular movements intact, sclera anicteric, conjunctiva clear. EARS, NOSE, THROAT: Ears normal, nares patent, oropharynx clear without exudates. Moist mucous membranes. NECK: Normal range of motion, supple without lymphadenopathy, JVD, or masses. LUNGS: Breath sounds equal, clear to auscultation bilaterally. No wheezes, and no crackles. No accessory muscle use. HEART: Regular rate and rhythm, normal S1 and S2 without murmur, rub or gallop. ABDOMEN: Soft, nontender, not distended, normoactive bowel sounds, no guarding, no rebound, no masses. No hepatomegaly or splenomegaly. RECTAL: streaks of dried blood on diaper, intergluteal scarring, excess perianal mucosa, no internal hemorrhoids note, good rectal tone, no bright red blood on glvoe, thin liquid stool MUSCULOSKELETAL: Normal range of motion at all joints. No bony deformities or tenderness. No CVA tenderness. UPPER EXTREMITIES: 2+ pulses, warm, well-perfused. No cyanosis. No clubbing. No peripheral edema. LOWER EXTREMITIES: 2+ pulses, warm, well-perfused. No calf tenderness. No peripheral edema. NEUROLOGICAL: Cranial nerves II-XII intact. Normal speech. Minor pronator drift to RUE. +Romberg PSYCHIATRIC: Cooperative. Good eye contact. Abnormal affect, speaks in short sentences SKIN: Warm, dry, normal turgor, no rashes or lesions noted, normal capillary refill. Laboratory Results - last 24 hr 03/10/19 03/10/19 03/10/19 00:35 00:35 00:35 WBC 7.5 RBC 2.17 L Hgb 7.9 L Hct 22.4 L D MCV 103.3 H MCH 36.6 H D MCHC 35.4 RDW 14.9 D Plt Count 216 MPV 7.0 L Absolute Neuts (auto) 5.2 Neutrophils % 70.1 Lymphocytes % 18.5 Monocytes % 8.1 Eosinophils % 2.2 Basophils % 1.1 Nucleated RBC % 0 Sodium 143 Potassium 3.9 Chloride 108 H Carbon Dioxide 27 Anion Gap 8 BUN 15.3 Creatinine 0.9 Est GFR (CKD-EPI)AfAm 99.94 Est GFR (CKD-EPI)NonAf 86.23 Random Glucose 99 Calcium 8.7 Total Bilirubin 1.5 H AST 56 H ALT 51 Alkaline Phosphatase 101 Creatine Kinase 146 Troponin I < 0.02 Total Protein 6.3 L Albumin 3.4 Lipase 119 Stool Occult Blood Crossmatch 03/10/19 03/10/19 00:35 03:15 WBC RBC Hgb Hct MCV MCH MCHC RDW Plt Count MPV Absolute Neuts (auto) Neutrophils % Lymphocytes % Monocytes % Eosinophils % Basophils % Nucleated RBC % Sodium Potassium Chloride Carbon Dioxide Anion Gap BUN Creatinine Est GFR (CKD-EPI)AfAm Est GFR (CKD-EPI)NonAf Random Glucose Calcium Total Bilirubin AST ALT Alkaline Phosphatase Creatine Kinase Troponin I Total Protein Albumin Lipase Stool Occult Blood Positive Crossmatch See Detail ASSESSMENT/PLAN: 69M w/ pmh of mantle cell lymphoma, follicular cell lymphoma(s/p chemotherapy x6 sessions, last in January 2018; stopped due to effects on brain; states that he doesn't need anymore tx), HTN, HLD, h/o +FOBT, blindness in Right eye BIBA after fall possibly 2/2 blood loss anemia # Lower GI bleed > hgb 7.9, MCV 103.3 - hold pRBC - venofer 250mg BID - fu iron studies - GI consult # macrocytosis possibly 2/2 chronic EtOH > MCV 103.3 - fu Utox # chronic lower leg weaknes - MRI L-spine - possible consult Neuro Visit type - Emergency Visit Emergency Visit: Yes ED Registration Date: 03/10/19 Care time: The patient presented to the Emergency Department on the above date and was hospitalized for further evaluation of their emergent condition. - New Patient This patient is new to me today: Yes Date on this admission: 03/10/19 - Critical Care Critical Care patient: No ATTENDING PHYSICIAN STATEMENT I saw and evaluated the patient. I reviewed the resident's note and discussed the case with the resident. I agree with the resident's findings and plan as documented. SUBJECTIVE: OBJECTIVE: ASSESSMENT AND PLAN:
[2019-03-10 06:57] LABS: COCAINE, UR NEGATIVE ng/ml (CUTOFF=300); METHADONE, UR NEGATIVE ng/ml (CUTOFF=300); OPIATES, URI NEGATIVE ng/ml (CUTOFF=300); PHENCYCLIDINE,URINE NEGATIVE ng/ml (CUTOFF=25); URINE AMPHETAMINES NEGATIVE ng/ml (CUTOFF=500); URINE BARBITURATES NEGATIVE ng/ml (CUTOFF=200); URINE BENZODIAZEPINES NEGATIVE ng/ml (CUTOFF=200)
--- NOTE | 2019-03-10 08:15 | EKG ---
Test Reason : Blood Pressure : / mmHG Vent. Rate : 096 BPM Atrial Rate : 096 BPM P-R Int : 156 ms QRS Dur : 086 ms QT Int : 352 ms P-R-T Axes : 051 061 043 degrees QTc Int : 444 ms NORMAL SINUS RHYTHM NORMAL ECG WHEN COMPARED WITH ECG OF 20-JUL-2017 15:20, NO SIGNIFICANT CHANGE WAS FOUND Confirmed by MANJINDER PINTO MD ([id number]) on 03/10/2019 8:14:57 AM Referred By: Confirmed By:MANJINDER PINTO MD
[2019-03-10 09:53] LABS: URINE APPEARANCE CLEAR; URINE BILIRUBIN NEGATIVE (NEGATIVE); URINE COLOR YELLOW; URINE GLUCOSE (UA) NEGATIVE (NEGATIVE); URINE KETONE NEGATIVE (NEGATIVE); URINE LEUK ESTERASE NEGATIVE (NEGATIVE); URINE NITRITE NEGATIVE (NEGATIVE); URINE PROTEIN NEGATIVE (NEGATIVE)
[2019-03-10 11:25] LABS: HEMATOCRIT 23.4 % (35.4-49); HEMOGLOBIN 8.4 GM/dL (11.7-16.9); MEAN CELL VOLUME 105.3 fl (80-96); MEAN PLT VOLUME 7.1 fl (7.5-11.1); PLATELET COUNT 211 K/MM3 (134-434); RBC 2.22 M/mm3 (4.00-5.60); RDW 14.8 % (11.9-15.9); WHITE BLOOD COUNT 5.9 K/mm3 (4.0-10.0)
[2019-03-10 11:47] LABS: IRON SERUM 182 ug/dL (50-175); TOTAL IRON BINDING CAPACITY 201 ug/dL (250-450)
[2019-03-10 11:57] LABS: ALBUMIN 3.2 g/dl (3.4-5.0); BILIRUBIN,TOTAL 3.1 mg/dL (0.2-1); BLOOD UREA NITROGEN 12.8 mg/dL (7-18); CALCIUM 8.4 mg/dL (8.5-10.1); CREATININE 0.8 mg/dL (0.55-1.3); TOT PROT 6.2 g/dl (6.4-8.2)
[2019-03-10] MEDS ORDERED: SODIUM CHLORIDE IVPB SCH ×2 (12:00→22:00)
[2019-03-10] MEDS ORDERED: IRON SUCROSE IVPB SCH ×2 (12:00→22:00)
--- NOTE | 2019-03-10 13:19 | CON.GI ---
Consult Consult Specialty:: GI Referred by:: Clarence ko MD resident Reason for Consultation:: Lower GI bleed - History of Present Illness Chief Complaint: Fall History of Present Illness: 69M w/ pmh of mantle cell lymphoma, follicular cell lymphoma(s/p chemotherapy x6 sessions, last in January 2018; stopped due to effects on brain; states that he doesn't need anymore tx), HTN, HLD, h/o +FOBT, blindness in Right eye; BIBA after mechanical fall when walking to the shower, no LOC or hit his head. States that neither his or him had the strength to get back up. Prior to episode, denies NEELY/dizziness/CP/palpitations/SOB. Denies sick contacts. Has fallen 4-5x in the past year w/o LOC. Had colonoscopy last month and noted polyps. Lost 7lbs in 1 year. Never had EGD. Denies chronic NSAID usage. Denies hematemesis, hematachezia, melena. At baseline, has difficulty with ambulation and uses walker, wears a diaper and has a bedside urinal. 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 No: Ascites Hepatobiliary: Yes: Other (cholelithiaisis ) Renal/: Yes: Cancer (malt cell lymphoma ) Heme/Onc: Yes: Anemia, Other (former chemo and radiation therapy ) - Past Surgical History Past Surgical History: Yes: Colonoscopy (january 15 ), Upper Endoscopy (january 15 ) - Alcohol/Substance Use Hx Alcohol Use: No (former drinker kanika wisemandka ) History of Substance Use: reports: None - Smoking History Smoking history: Former smoker Have you smoked in the past 12 months: No Aproximately how many cigarettes per day: 10 (1/2PPD for 50 years ) If you are a former smoker, when did you quit?: 2013 - Social History Usual Living Arrangement: With Spouse 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 History of Recent Travel: No <Bob Hathaway - Last Filed: 03/10/19 15:53> Home Medications <Bob Hathaway - Last Filed: 03/10/19 15:53> <Luz Elena Yeboah - Last Filed: 03/10/19 18:18> - Allergies Allergies/Adverse Reactions: Allergies Allergy/AdvReac Type Severity Reaction Status Date / Time No Known Allergies Allergy Verified 08/18/17 01:08 - Home Medications Home Medications: Ambulatory Orders Rosuvastatin Calcium [Crestor] 10 mg PO DAILY 07/20/17 Finasteride [Proscar] 5 mg PO DAILY 12/12/18 Losartan Potassium 25 mg PO DAILY 03/10/19 Family Disease History - Family Disease History Family Disease History: Diabetes: Mother (Asthma ), Heart Disease: Father, Other : Sister (Down Syndrome ) <Bob Hathaway - Last Filed: 03/10/19 15:53> Review of Systems Unable to obtain ROS, reason: per - Review of Systems Constitutional: reports: Unintentional Wgt. Loss (20 pound within one year), Weakness Eyes: reports: Other (right eye legal blind) HENT: reports: Difficult Swallowing Cardiovascular: reports: Palpitations. denies: Chest Pain Respiratory: reports: Cough (yellow sputum). denies: Hemoptysis Gastrointestinal: reports: Rectal Bleeding Neurological: reports: Unsteady Gait, Weakness, Other (orthostsics hypotension) Hematology/Lymphatic: reports: Other (mantle cell lymphoma) <Bob Hathaway - Last Filed: 03/10/19 15:53> Physical Exam-GI Vital Signs: Vital Signs Temperature 98.6 F 03/10/19 10:24 Pulse Rate 85 03/10/19 10:24 Respiratory Rate 18 03/10/19 10:24 Blood Pressure 159/77 03/10/19 10:24 O2 Sat by Pulse Oximetry (%) 100 03/10/19 04:29 Constitutional: Yes: No Distress, Calm Eyes: Yes: Conjunctiva Clear HENT: Yes: Atraumatic, Normocephalic Neck: Yes: Supple Cardiovascular: Yes: Regular Rate and Rhythm Respiratory: Yes: CTA Bilaterally Gastrointestinal Inspection: No: Ascites, Distention ...Auscultate: Yes: Normoactive Bowel Sounds ...Palpate: Yes: Soft. No: Guarding, Tenderness, Tenderness, Epigastium, Tenderness, Rebound ...Rectal Exam: Yes: Guaiac Positive, Hemorrhoids/Internal, Sphincter Tone Poor. No: Hemorrhoids/External Genitourinary: Yes: Incontinence. No: CVA Tenderness - Left Edema: No Peripheral Pulses WNL: Yes Neurological: Yes: Alert, Unsteady Gait, Weakness, Other (dementia) Psychiatric: Yes: Alert Labs: CBC, BMP 03/10/19 10:40 03/10/19 10:40 <Bob Hathaway - Last Filed: 03/10/19 15:53> Vital Signs: Vital Signs Temperature 99.0 F 03/10/19 15:02 Pulse Rate 87 03/10/19 15:02 Respiratory Rate 18 03/10/19 15:02 Blood Pressure 141/77 03/10/19 15:02 O2 Sat by Pulse Oximetry (%) 100 03/10/19 09:00 Labs: CBC, BMP 03/10/19 10:40 03/10/19 10:40 <Luz Elena Yeboah - Last Filed: 03/10/19 18:18> Problem List - Problems (1) HTN (hypertension) Code(s): I10 - ESSENTIAL (PRIMARY) HYPERTENSION (2) Rectal bleeding Code(s): K62.5 - HEMORRHAGE OF ANUS AND RECTUM (3) HLD (hyperlipidemia) Code(s): E78.5 - HYPERLIPIDEMIA, UNSPECIFIED (4) Mantle cell lymphoma Code(s): C83.10 - MANTLE CELL LYMPHOMA, UNSPECIFIED SITE <Bob Hathaway - Last Filed: 03/10/19 15:53> Assessment/Plan # Fall # anemia irone studies was done after transfusion # Lower GI bleed likely diverticular bleed vs internal hemorrhoid # LEvated Bilirubin 3.5 , will get US abdomen and direct bilirubin , Castañeda sign negative # Cholelithiasis Plan : * 2 large IV pores 18 or larger * s.p one unit PRBC * Monitor H/H Q 8hr , HGB was 12 in November drop to 8.5 this visit , if continue to drop will need Colonoscopy * NPo for now * avoid NSIADS * Normal Transfusion Threshold hgb >8 gm * IV fluids * start clear liquid diet * Trend LFTs , Bili toltal and direct * Recent colonoscopy January 15 at [facility] with extensive diverticulosis in the entire colon , internal hemorrhoids non bleeding , 18 mm cecum polym was removed(injected and clip) Recent EGD January [address] with esophagitis and Thickened GE junction , 6 cm hiatal hernia December 12 CT scan abdomen/pelvic with cholelithiaisi with cystic lesion inseprable from cbd possibel cystic neoplasm , retroperitoneal lymphadenopathy * US Abdomen , possible need for MRCP * His GI doctor is Juan Aden and the one did the scope is Christian Castillo * <Bob Hathaway - Last Filed: 03/10/19 15:53> Pt seen/examined at bedside, agree with above assessment and plan per Dr. Hathaway. Pt poor historian, history obtained in part from pts . Reporting intermittent rectal bleeding (small volume) over the past few months now with increased weakness and decline in Hb with macrocytosis. EGD and colonoscopy reports reviewed from [facility] in 12/2018 (results as noted above). No blood on rectal exam. Etiology for anemia is likely multifactorial however cannot exclude component of GI bleed. Suspect outlet bleed/hemorrhoidal however rectal exam unremarkable and cannot exclude alternate etiology, clinically does not appear diverticular. Detailed discussion taken place with pts regarding potential need for repeat endoscopy particularly if recurrent overt bleeding - she would like to us speak with pts systems administration analyst, Dr. Juan Aden ([phone]) prior to her making a decision. Placed call, spoke with his nurse who said he is currently unavailable. Can reattempt tomorrow at provided no ([phone]). Per pts had also declined further oncologic treatment. Recommend clarification regarding goals of care and consider heme/onc consultation. If overt bleeding with acute drop in Hb or hemodynamic instability recommend CTA/ IR consult. Further recommendations as noted above per Dr. Hathaway's note. <Luz Elena Yeboah - Last Filed: 03/10/19 18:18>
--- NOTE | 2019-03-10 15:20 | PN ---
Physical Exam: SUBJECTIVE: Patient seen and examined. No acute events overnight. OBJECTIVE: Vital Signs Period Temp Pulse Resp BP Sys/Jimenez Pulse Ox Last 24 Hr 98.6 F-99.0 F 85-97 18-20 141-159/75-85 95-100 GENERAL: The patient is awake, alert, and fully oriented, in no acute distress. HEAD: Normal with no signs of trauma. EYES: PERRL, extraocular movements intact, sclera anicteric, conjunctiva clear. No ptosis. Mild proptosis. ENT: Ears normal, nares patent, oropharynx clear without exudates, moist mucous membranes. NECK: Trachea midline, full range of motion, supple. LUNGS: Breath sounds equal, clear to auscultation bilaterally, no wheezes, no crackles, no accessory muscle use. HEART: Regular rate and rhythm, S1, S2 without murmur, rub or gallop. ABDOMEN: Soft, nontender, nondistended, normoactive bowel sounds, no guarding, no rebound, no hepatosplenomegaly, no masses. RECTAL: Intergluteal scarring, excess perianal mucosa, no internal hemorrhoids noted, good rectal tone, no bright red blood on glove, thin liquid stool EXTREMITIES: 2+ pulses, warm, well-perfused, no edema. NEUROLOGICAL: Cranial nerves II through XII grossly intact. Normal speech, gait not observed. PSYCH: Normal mood, normal affect. SKIN: Warm, dry, normal turgor, no rashes or lesions noted Laboratory Results - last 24 hr Finasteride (Proscar -) 5 mg PO DAILY [facility] Sodium Chloride (Normal Saline -) 1,000 mls @ 125 mls/hr IV ASDIR AMANDA Last Admin: 03/10/19 01:13 Dose: 125 mls/hr Losartan Potassium (Cozaar -) 25 mg PO DAILY [facility] Rosuvastatin Calcium (Crestor -) 10 mg PO HS AMANDA Active Medications Finasteride (Proscar -) 5 mg PO DAILY AMANDA Sodium Chloride (Normal Saline -) 1,000 mls @ 125 mls/hr IV ASDIR AMANDA Last Admin: 03/10/19 01:13 Dose: 125 mls/hr Losartan Potassium (Cozaar -) 25 mg PO DAILY AMANDA Rosuvastatin Calcium (Crestor -) 10 mg PO HS AMANDA ASSESSMENT/PLAN: 69M w/ pmh of mantle cell lymphoma, follicular cell lymphoma(s/p chemotherapy x6 sessions, last in January 2018; stopped due to effects on brain; states that he doesn't need anymore tx), HTN, HLD, h/o +FOBT, blindness in Right eye BIBA after fall possibly 2/2 blood loss anemia #Lower GI bleed FOBT+ S/p venofer 250mg BID Monitor H&H GI consult: f/u LFTs, direct bili, LDH, reticulocytes US abd and MRI abd Protonix 40mg IV daily #Macrocytosis Iron: 182, TIBC: 201, Fe sat: 90% Utox: neg #DVT ppx SCDs #FEN NPO, per GI Visit type - Emergency Visit Emergency Visit: No - New Patient This patient is new to me today: Yes Date on this admission: 03/10/19 - Critical Care Critical Care patient: No ATTENDING PHYSICIAN STATEMENT I saw and evaluated the patient. I reviewed the resident's note and discussed the case with the resident. I agree with the resident's findings and plan as documented. SUBJECTIVE: OBJECTIVE: ASSESSMENT AND PLAN:
--- NOTE | 2019-03-10 17:33 | PN ---
Teaching Attending Note Name of Resident: Marilynn Richey ATTENDING PHYSICIAN STATEMENT I saw and evaluated the patient. I reviewed the resident's note and discussed the case with the resident. I agree with the resident's findings and plan as documented. SUBJECTIVE: No fever or chills. no pain , denies any SOB. denies any painin his joints OBJECTIVE: NAD , slow responses and flat affect. CV : RRR Lungs : CTAB Abd: soft, NT, ND , NL Bs Ext : No edema or erythema ASSESSMENT AND PLAN: 69 y/o man with h/o GI bleed , diverticulosis and internal hemorrhoids, mantle cell lymphoma and follicular lymphoma, HTN, HLP, and other medical problems who presented with a fall and was found to have anemia 1- Fall. likely mechanical 2- Macrocytic anemia: possible GI bleed as OB is + , but also possible BM etiology due to Macrocytosis Vs B12/folate def - check B12, folate - Iron studies missing ferritin . order - repeat CBC - transfuse fro Hb < 7, unless actively bleeding - decision to do colonoscopy per GI - Rectal exam per night undergraduate intern: with no masses, or hemorrhoids felt. brown stool on examiner finger 3- HTN: cont losartan 4- Pumonary nodules: f/u as ou tpt . were seen on CT form 09/04 . DVT PX; SCDs due to possible GI bleed
[2019-03-10] MEDS: LOSARTAN POTASSIUM 25 MG TABLET PO SCH (18:31)
[2019-03-10] MEDS: FINASTERIDE 5 MG TABLET (FP) PO SCH (18:31)
[2019-03-10] MEDS: ROSUVASTATIN CA 10 MG TABLET (FP) PO SCH (21:43)
[2019-03-11 08:02] LABS: BASO % 1.3 % (0-2.0); EOS % 3.9 % (0-4.5); HEMATOCRIT 23.3 % (35.4-49); HEMOGLOBIN 8.5 GM/dL (11.7-16.9); LYMPH % 22.9 % (8-40); MCH 37.2 pg (25.7-33.7); MCHC 36.3 g/dl (32.0-35.9); MEAN CELL VOLUME 102.4 fl (80-96); MONO % 8.2 % (3.8-10.2); NEUT % 63.7 % (42.8-82.8); PLATELET COUNT 220 K/MM3 (134-434); RBC 2.28 M/mm3 (4.00-5.60); WHITE BLOOD COUNT 5.9 K/mm3 (4.0-10.0)
[2019-03-11 09:05] LABS: BILIRUBIN,DIRECT 0.5 mg/dL (0.0-0.2); BILIRUBIN,TOTAL 1.9 mg/dL (0.2-1); BLOOD UREA NITROGEN 10.1 mg/dL (7-18); CALCIUM 8.3 mg/dL (8.5-10.1); CREATININE 0.8 mg/dL (0.55-1.3); MAGNESIUM 2.2 mg/dL (1.8-2.4); POTASSIUM 3.9 mmol/L (3.5-5.1)
[2019-03-11] MEDS: PANTOPRAZOLE SODIUM 40 MG VIAL IVPUSH SCH (11:06)
[2019-03-11] MEDS: FINASTERIDE 5 MG TABLET (FP) PO SCH (11:06)
[2019-03-11] MEDS: LOSARTAN POTASSIUM 25 MG TABLET PO SCH (11:06)
[2019-03-11] MEDS: SODIUM CHLORIDE 1,000 ML IV SCH (11:24)
[2019-03-11 12:44] VITALS: BMI 23.2
--- NOTE | 2019-03-11 13:02 | PN.GI ---
GI Progress Note - Objective Vital Signs: Vital Signs Temperature 99.5 F 03/11/19 06:00 Pulse Rate 93 H 03/11/19 06:00 Respiratory Rate 20 03/11/19 06:00 Blood Pressure 137/77 03/11/19 06:00 O2 Sat by Pulse Oximetry (%) 98 03/10/19 21:00 Labs: CBC, BMP 03/11/19 06:48 03/11/19 06:48 Problem List - Problems (1) HTN (hypertension) Code(s): I10 - ESSENTIAL (PRIMARY) HYPERTENSION (2) Rectal bleeding Code(s): K62.5 - HEMORRHAGE OF ANUS AND RECTUM (3) HLD (hyperlipidemia) Code(s): E78.5 - HYPERLIPIDEMIA, UNSPECIFIED (4) Mantle cell lymphoma Code(s): C83.10 - MANTLE CELL LYMPHOMA, UNSPECIFIED SITE
[2019-03-11 13:12] LABS: ANISOCYTOSIS 0; MACROCYTOSIS 1+; OVALOCYTE 1+; PLATELET ESTIMATE NORMAL
--- NOTE | 2019-03-11 13:18 | PN ---
Physical Exam: SUBJECTIVE: Patient seen and examined. No acute events overnight. OBJECTIVE: Vital Signs Period Temp Pulse Resp BP Sys/Jimenez Pulse Ox Last 24 Hr 98.7 F-99.5 F 87-93 17-20 137-159/71-82 98 GENERAL: The patient is awake, alert, and fully oriented, in no acute distress. HEAD: Normal with no signs of trauma. EYES: PERRL, extraocular movements intact, sclera anicteric, conjunctiva clear. No ptosis. Mild proptosis. ENT: Ears normal, nares patent, oropharynx clear without exudates, moist mucous membranes. NECK: Trachea midline, full range of motion, supple. LUNGS: Breath sounds equal, clear to auscultation bilaterally, no wheezes, no crackles, no accessory muscle use. HEART: Regular rate and rhythm, S1, S2 without murmur, rub or gallop. ABDOMEN: Soft, nontender, nondistended, normoactive bowel sounds, no guarding, no rebound, no hepatosplenomegaly, no masses. RECTAL: Intergluteal scarring, excess perianal mucosa, no internal hemorrhoids noted, good rectal tone, no bright red blood on glove, thin liquid stool EXTREMITIES: 2+ pulses, warm, well-perfused, no edema. NEUROLOGICAL: Cranial nerves II through XII grossly intact. Normal speech, gait not observed. PSYCH: Normal mood, normal affect. SKIN: Warm, dry, normal turgor, no rashes or lesions noted Laboratory Results - last 24 hr 03/11/19 03/11/19 03/11/19 06:37 06:48 06:48 WBC 5.9 RBC 2.28 L Hgb 8.5 L Hct 23.3 L MCV 102.4 H MCH 37.2 H MCHC 36.3 H RDW 15.0 Plt Count 220 MPV 7.0 L Absolute Neuts (auto) 3.8 Neutrophils % 63.7 Lymphocytes % 22.9 D Monocytes % 8.2 Eosinophils % 3.9 Basophils % 1.3 Nucleated RBC % 0 Retic Count 6.87 H Sodium 141 Potassium 3.9 Chloride 110 H Carbon Dioxide 26 Anion Gap 5 L BUN 10.1 Creatinine 0.8 Est GFR (CKD-EPI)AfAm 104.90 Est GFR (CKD-EPI)NonAf 90.51 Random Glucose 79 Calcium 8.3 L Magnesium 2.2 Ferritin 260.7 Total Bilirubin 1.9 H Direct Bilirubin 0.5 H LD Total 521 H Vitamin B12 762 Serum Folate 20 H Active Medications Finasteride (Proscar -) 5 mg PO DAILY [facility] Last Admin: 03/11/19 11:06 Dose: 5 mg Sodium Chloride (Normal Saline -) 1,000 mls @ 125 mls/hr IV ASDIR [facility] Last Admin: 03/11/19 11:24 Dose: 125 mls/hr Losartan Potassium (Cozaar -) 25 mg PO DAILY [facility] Last Admin: 03/11/19 11:06 Dose: 25 mg Pantoprazole Sodium (Protonix Iv) 40 mg IVPUSH DAILY [facility] Last Admin: 03/11/19 11:06 Dose: 40 mg Rosuvastatin Calcium (Crestor -) 10 mg PO HS [facility] Last Admin: 03/10/19 21:43 Dose: 10 mg ASSESSMENT/PLAN: 69M w/ pmh of mantle cell lymphoma, follicular cell lymphoma(s/p chemotherapy x6 sessions, last in January 2018; stopped due to effects on brain; states that he doesn't need anymore tx), HTN, HLD, h/o +FOBT, blindness in Right eye BIBA after fall possibly 2/2 blood loss anemia #Fall, likely mechanical No further w/u indicated at this time #Macrocytic anemia Possible lower GI bleed, possible BM (hx of lymphoma) FOBT +, s/p venofer 250mg BID Check B12, folate, and iron studies, follow H&H LDH elevated at 521, ordered haptoglobin Transfuse for Hgb <7, unless actively bleeding Colonoscopy tomorrow, per GI Protonix 40mg IV daily #HTN Continue home losartan 25mg daily #Pulmonary nodules Seen on CT from 09/04/2018 F/u as outpt #DVT ppx SCDs #FEN NPO after midnight Visit type - Emergency Visit Emergency Visit: No - New Patient This patient is new to me today: No - Critical Care Critical Care patient: No ATTENDING PHYSICIAN STATEMENT I saw and evaluated the patient. I reviewed the resident's note and discussed the case with the resident. I agree with the resident's findings and plan as documented. SUBJECTIVE: OBJECTIVE: ASSESSMENT AND PLAN:
--- NOTE | 2019-03-11 15:51 | PN ---
Teaching Attending Note Name of Resident: Marilynn Richey ATTENDING PHYSICIAN STATEMENT I saw and evaluated the patient. I reviewed the resident's note and discussed the case with the resident. I agree with the resident's findings and plan as documented. SUBJECTIVE: No fever or chills. No NEELY. no CP or SOB. OBJECTIVE: NAD , slow responses and flat affect. CV : RRR Lungs : CTAB Abd: soft, NT, ND , NL Bs. Ext: No edema or erythema ASSESSMENT AND PLAN: 69 y/o man with h/o GI bleed , diverticulosis and internal hemorrhoids, mantle cell lymphoma and follicular lymphoma, HTN, HLP, and other medical problems who presented with a fall and was found to have anemia 1- Fall. likely mechanical 2- Anemia: high retic count indicate either blood loss through GI tract or RBC destruction through hemolysis (enriqueta with lymphoma history). No evidence of iron deficiency. + OB . elevated LDH - No clear plan from GI, will discuss if patient will be scoped. appreciate help - check Haptogolobin - US to check for splenomegaly - No B12 or folate def - heme consult - liquid diet pending further plan for C-scope 3- HTN: cont losartan 4- Pulmonary nodules: f/u as out pt. were seen on CT form 09/04. DVT PX; SCDs due to possible GI bleed will d/w
--- NOTE | 2019-03-11 16:22 | PN.GI ---
GI Progress Note Subjective: No overt bleeding since admission Denies abdominal pain - Objective Vital Signs: Vital Signs Temperature 98.3 F 03/11/19 14:45 Pulse Rate 90 03/11/19 14:45 Respiratory Rate 20 03/11/19 14:45 Blood Pressure 160/90 03/11/19 14:45 O2 Sat by Pulse Oximetry (%) 99 03/11/19 09:00 Constitutional: Calm Eyes: No: Sclera Icterus Cardiovascular: Yes: Regular Rate and Rhythm, Murmur Respiratory: Yes: Diminished (at bases bilaterally with poor insp effort) Gastrointestinal Inspection: No: Distention ...Auscultate: Yes: Normoactive Bowel Sounds ...Palpate: No: Tenderness ...Rectal Exam: Yes: Other (No external lesions, no masses, scant brown stool, no blood) Edema: No (No LE edema) Neurological: Yes: Alert Labs: CBC, BMP 03/11/19 06:48 03/11/19 06:48 Problem List - Problems (1) Rectal bleeding Assessment/Plan: No overt rectal bleeding with recent EGD/Colonoscopy Can arrange follow-up with Primary cosmetic surgeon as outpatient Consult placed to wrong Dr. Mcbride. I let Derrick's nurse know. Recall as needed Code(s): K62.5 - HEMORRHAGE OF ANUS AND RECTUM
[2019-03-11] MEDS: ROSUVASTATIN CA 10 MG TABLET (FP) PO SCH (21:51)
[2019-03-12 08:11] LABS: HEMATOCRIT 20.7 % (35.4-49); HEMOGLOBIN 8.3 GM/dL (11.7-16.9); MCHC 40.2 g/dl (32.0-35.9); MEAN CELL VOLUME 113.9 fl (80-96); MEAN PLT VOLUME 7.7 fl (7.5-11.1); PLATELET COUNT 203 K/MM3 (134-434); RBC 1.82 M/mm3 (4.00-5.60); RDW 14.7 % (11.9-15.9); WHITE BLOOD COUNT 6.4 K/mm3 (4.0-10.0)
[2019-03-12 08:16] LABS: BLOOD UREA NITROGEN 8.6 mg/dL (7-18); CALCIUM 8.2 mg/dL (8.5-10.1); CREATININE 0.8 mg/dL (0.55-1.3); POTASSIUM 3.8 mmol/L (3.5-5.1)
[2019-03-12 08:39] LABS: MCH 45.8 pg (25.7-33.7)
[2019-03-12] MEDS: PANTOPRAZOLE SODIUM 40 MG VIAL IVPUSH SCH (09:39)
[2019-03-12] MEDS: FINASTERIDE 5 MG TABLET (FP) PO SCH (09:39)
[2019-03-12] MEDS: LOSARTAN POTASSIUM 25 MG TABLET PO SCH (09:39)
[2019-03-12] MEDS ORDERED: ALLOPURINOL 300 MG TABLET (FP) PO ONE (13:03)
[2019-03-12] MEDS ORDERED: predniSONE 20 MG TABLET (UD) PO ONE (13:30)
[2019-03-12] MEDS: SODIUM CHLORIDE 1,000 ML IV SCH (14:23)
--- NOTE | 2019-03-12 15:22 | CONSULT ---
Consultation: CONSULT REQUEST: HEME/ONC HISTORY OF PRESENT ILLNESS: Patient is a 69 yo M w/ a PMHx Mantle Cell/Follicular Lymphoma (s/p chemo x 6, last in January2018), HTN, HLD, R eye blindness, came to the ER because of recurrent falls which are likely mechanical. He denied headaches, dizzines, chest pain, sob prior to falls. Says he loses balance. Patient was fond Anemic in the ER with Hgb 7.9. S/p 1U PRBC. Posttransfusion is 8.3. Also found with MCV of 113. Patient denies bloody stools, hematemesis, dark stools, and other signs of bleeding. Prior to 11/2018, Hgb, MCV was WNL. U/S with moderate splenomegaly. Colonoscopy: 12/28/18 at [facility] with extensive diverticulosis in the entire colon , internal hemorrhoids non bleeding , 18 mm cecum polyp was removed(injected and clip) Recent EGD January [address] with esophagitis and Thickened GE junction , 6 cm hiatal hernia December 12 CT scan abdomen/pelvic with cholelithiasis with cystic lesion inseparable from cbd possible cystic neoplasm , retroperitoneal lymphadenopathy Social: former smoker 5 years ago. 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 Family hx: no known family history Surgical hx: none Oncologist: Dr. Dillon Murray Ambulatory Orders Rosuvastatin Calcium [Crestor] 10 mg PO DAILY 07/20/17 Finasteride [Proscar] 5 mg PO DAILY 12/12/18 Losartan Potassium 25 mg PO DAILY 03/10/19 REVIEW OF SYSTEMS: CONSTITUTIONAL: Absent: fever, chills, diaphoresis, generalized weakness, malaise, loss of appetite, weight change HEENT: Absent: difficulty swallowing, mouth swelling, ear pain, eye pain, visual changes CARDIOVASCULAR: Absent: chest pain, syncope, palpitations, irregular heart rate, lightheadedness , peripheral edema RESPIRATORY: chronic cough Absent: shortness of breath, dyspnea with exertion, orthopnea, wheezing, stridor, hemoptysis GASTROINTESTINAL: Absent: abdominal pain, abdominal distension, nausea, vomiting, diarrhea, constipation, melena, hematochezia GENITOURINARY: Absent: dysuria, frequency, urgency, hesitancy, hematuria, flank pain, genital pain HEMATOLOGIC/IMMUNOLOGIC: Absent: easy bleeding, easy bruising, lymphadenopathy, frequent infections PSYCHIATRIC: Absent: anxiety, depression, suicidal or homicidal ideation, hallucinations. PHYSICAL EXAMINATION Vital Signs - 24 hr 03/11/19 03/11/19 03/11/19 19:09 21:00 23:00 Temperature 99.2 F Pulse Rate 94 H 93 H Respiratory 18 18 Rate Blood Pressure 164/78 154/78 O2 Sat by Pulse 99 Oximetry (%) GENERAL: a/o x 3, flat affect, slow responses, dry cough at times HEAD: Normal with no signs of trauma. EYES: Pupils equal, round and reactive to light, sclera anicteric EARS, NOSE, THROAT: oropharynx clear without exudates NECK: supple without lymphadenopathy, JVD, or masses. LUNGS: clear to auscultation b/l HEART: RRR, no murmurs appreciated ABDOMEN: Soft, nontender, not distended, normoactive bowel sounds LOWER EXTREMITIES: 2+ pulses, No peripheral edema. Refused Testicular Exam Laboratory Results - last 24 hr ASSESSMENT/PLAN: #Macrocytic Anemia #R/o Hemolysis -could be Hemolytic Anemia +/- blood loss because of +FOBT x 2 -Absolute Retic count: 3.8% -Folate, B12 normal -Elevated LDH 521 -FU Haptoglobin -Mild Splenomegaly on US -T. bili 1.9, Direct bili 0.5, elevated indirect - positive direct madeline -Check Peripheral smear -will need to start steroids 1mg/kg daily. recommend allopurinol.follow uric acid -FU GI reccs -will discuss with attending for final reccs Dispo: We will continue to follow the patient. Thank you for this consultative opportunity. Visit type - Emergency Visit Emergency Visit: Yes ED Registration Date: 03/10/19 Care time: The patient presented to the Emergency Department on the above date and was hospitalized for further evaluation of their emergent condition. - New Patient This patient is new to me today: Yes Date on this admission: 03/12/19 - Critical Care Critical Care patient: No ATTENDING PHYSICIAN STATEMENT I saw and evaluated the patient. I reviewed the resident's note and discussed the case with the resident. I agree with the resident's findings and plan as documented. SUBJECTIVE: OBJECTIVE: ASSESSMENT AND PLAN:
--- NOTE | 2019-03-12 17:45 | PN ---
Teaching Attending Note Name of Resident: Christa Zavala ATTENDING PHYSICIAN STATEMENT I saw and evaluated the patient. I reviewed the resident's note and discussed the case with the resident. I agree with the resident's findings and plan as documented. SUBJECTIVE: Patient seen and examined 69 year old male history of mantle cell lymphoma treated with bendamustine- rituxin in [id number] --6 cycles . No recent imaging at [facility] with Dr. Dillon Murray , oncologist. Followed at [facility] by Juan Aden . Found to have RPN and with cystic lesion inseparable from CBD. Presented after multiple falls. Found to be anemic with hematest positive stool x2. 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 F0llow Hb/Hct/Ldh/ retics, and uric acid. OBJECTIVE: ASSESSMENT AND PLAN:
--- NOTE | 2019-03-12 18:28 | PN ---
Physical Exam: SUBJECTIVE: Patient seen and examined by the bedside. He is alert and cooperative. OBJECTIVE: Vital Signs Period Temp Pulse Resp BP Sys/Jimenez Pulse Ox Last 24 Hr 98.1 F-99.2 F 93-102 16-20 149-164/78-87 97-99 GENERAL: The patient is awake, alert, and fully oriented, in no acute distress. HEAD: Normal with no signs of trauma. EYES: PERRL, extraocular movements intact, sclera anicteric, conjunctiva clear. No ptosis. Mild proptosis. ENT: Ears normal, nares patent, oropharynx clear without exudates, moist mucous membranes. NECK: Trachea midline, full range of motion, supple. LUNGS: Breath sounds equal, clear to auscultation bilaterally, no wheezes, no crackles, no accessory muscle use. HEART: Regular rate and rhythm, S1, S2 without murmur, rub or gallop. ABDOMEN: Soft, nontender, nondistended, normoactive bowel sounds, no guarding, no rebound, no hepatosplenomegaly, no masses. RECTAL: Intergluteal scarring, excess perianal mucosa, no internal hemorrhoids noted, good rectal tone, no bright red blood on glove, thin liquid stool EXTREMITIES: 2+ pulses, warm, well-perfused, no edema. NEUROLOGICAL: Cranial nerves II through XII grossly intact. Normal speech, gait not observed. PSYCH: Normal mood, normal affect. SKIN: Warm, dry, normal turgor, no rashes or lesions noted Laboratory Results - last 24 hr 03/12/19 03/12/19 03/12/19 06:40 06:40 13:26 WBC 6.4 RBC 1.82 L Hgb 8.3 L Hct 20.7 L MCV 113.9 H D MCH 45.8 H MCHC 40.2 H RDW 14.7 Plt Count 203 MPV 7.7 Sodium 142 Potassium 3.8 Chloride 111 H Carbon Dioxide 25 Anion Gap 6 L BUN 8.6 Creatinine 0.8 Est GFR (CKD-EPI)AfAm 104.90 Est GFR (CKD-EPI)NonAf 90.51 Random Glucose 85 Uric Acid Calcium 8.2 L Direct Antiglob Test Positive H 03/12/19 13:26 WBC RBC Hgb Hct MCV MCH MCHC RDW Plt Count MPV Sodium Potassium Chloride Carbon Dioxide Anion Gap BUN Creatinine Est GFR (CKD-EPI)AfAm Est GFR (CKD-EPI)NonAf Random Glucose Uric Acid 5.6 Calcium Direct Antiglob Test Active Medications Generic Name Dose Route Start Last Admin Trade Name Rico PRN Reason Stop Dose Admin Allopurinol 300 mg 03/13/19 10:00 Zyloprim - PO DAILY AMANDA Finasteride 5 mg 03/10/19 14:45 03/12/19 09:39 Proscar - PO 5 mg DAILY AMANDA Administration Losartan Potassium 25 mg 03/10/19 14:45 03/12/19 09:39 Cozaar - PO 25 mg DAILY AMANDA Administration Pantoprazole Sodium 40 mg 03/11/19 10:00 03/12/19 09:39 Protonix Iv IVPUSH 40 mg DAILY AMANDA Administration Prednisone 80 mg 03/13/19 10:00 Deltasone - PO DAILY AMANDA Rosuvastatin Calcium 10 mg 03/10/19 22:00 03/11/19 21:51 Crestor - PO 10 mg HS AMANDA Administration ASSESSMENT/PLAN: 69 year old male with PMH significant for mantle cell lymphoma, follicular cell lymphoma(s/p chemotherapy x6 sessions, last in January 2018), HTN, HLD, and right eye blindness presented to the ER after a fall no LOC, no head injury)and was admitted for anemia workup. #Macrocytic anemia -Heme consult: Likely hemolytic anemia, start allupurinol and steroids 1mg/kg with protonix -Allopurinol 300mg daily, Prednisone 80mg PO daily -B12 762, folate H 20, and iron H 182, TIBC L 201, follow H&H -LDH elevated at 521, ordered haptoglobin pending -Protonix 40mg IV daily -Transfuse for Hgb <7, unless actively bleeding -GI: no need for colonoscopy, done last month -FOBT +, s/p venofer 250mg BID #Hx of HLD -Crestor 10mg OD #Hx of HTN -Losartan 25mg OD #Fall - Resolved, no further workup indicated #Pulmonary nodules -Seen on CT from 09/04/2018 -F/u as out patient #DVT ppx -SCDs #FEN - Regular diet Visit type - Emergency Visit Emergency Visit: Yes ED Registration Date: 03/10/19 Care time: The patient presented to the Emergency Department on the above date and was hospitalized for further evaluation of their emergent condition. - New Patient This patient is new to me today: Yes Date on this admission: 03/12/19 - Critical Care Critical Care patient: No - Discharge Referral Referred to [facility] Med [facility] No ATTENDING PHYSICIAN STATEMENT I saw and evaluated the patient. I reviewed the resident's note and discussed the case with the resident. I agree with the resident's findings and plan as documented. SUBJECTIVE: OBJECTIVE: ASSESSMENT AND PLAN:
--- NOTE | 2019-03-12 19:19 | PN ---
Teaching Attending Note Name of Resident: Marilynn Richey ATTENDING PHYSICIAN STATEMENT I saw and evaluated the patient. I reviewed the resident's note and discussed the case with the resident. I agree with the resident's findings and plan as documented. SUBJECTIVE: no pain, no fever or chills OBJECTIVE: NAD, slow responses and flat affect. had a BM in am CV: RRR Lungs: CTAB Abd: soft, NT, ND, NL Bs. Ext: No edema or erythema ASSESSMENT AND PLAN: 69 y/o man with h/o GI bleed , diverticulosis and internal hemorrhoids, mantle cell lymphoma and follicular lymphoma, HTN, HLP, and other medical problems who presented with a fall and was found to have anemia 1- Fall. likely mechanical 2- hemolytic anemia: - + madeline - d/w Dr. Mcbride: start prednisone, alopurinol and check UA - monitor HB - PPI 3- HTN: cont losartan 4- Pulmonary nodules: f/u as out pt. were seen on CT form 09/04. DVT PX; SCDs start heparin sq
--- NOTE | 2019-03-12 19:19 | DS ---
Physical Examination Vital Signs: Vital Signs Temperature 98.7 F 03/12/19 14:02 Pulse Rate 95 H 03/12/19 14:02 Respiratory Rate 20 03/12/19 14:02 Blood Pressure 152/84 03/12/19 14:02 O2 Sat by Pulse Oximetry (%) 97 03/12/19 09:00 Labs: CBC, BMP 03/12/19 06:40 03/12/19 06:40 Discharge Summary Reason For Visit: ANEMIA, TRAUMATIC INJURY OF HEAD, LYMPHOMA, RECTAL Current Active Problems HLD (hyperlipidemia) (Acute) HTN (hypertension) (Acute) Mantle cell lymphoma (Acute) Condition: Stable - Instructions Diet, Activity, Other Instructions: You were admitted to the hospital because you fell down. While you were at the hospital, we found that you had a low level of iron in your blood. While you were here, we performed a scan of your head (CT scan), which showed no abnormalities. We also performed a scan of your abdomen (Ultrasound), which showed that your spleen is bigger than it should be, which is why we would like you to follow up with your Nurses Director. Medications: -Please continue ALL your home medications as prescribed. Follow up: -Please make an appointment with your PCP within one week. -Please make an appointment with you Nurses Director, Dr. Giraldo within one week. -Please make an appointment with your Oncologist, Dr. Murray within one week. Additional Information: Please return to the Emergency Department if you have any of the following: Abdominal pain that does not improve, shortness of breath, nausea, vomiting, diarrhea, bleeding that will not stop, or persistent headache. - Home Medications Comprehensive Discharge Medication List: Ambulatory Orders Rosuvastatin Calcium [Crestor] 10 mg PO DAILY 07/20/17 Finasteride [Proscar] 5 mg PO DAILY 12/12/18 Losartan Potassium 25 mg PO DAILY 03/10/19 - Discharge Referral Referred to [facility] Med [facility].C.: No
[2019-03-12] MEDS: HEPARIN NA (PORCINE) 5,000 UNITS/ML 1ML VIAL SQ SCH (21:21)
[2019-03-12] MEDS: ROSUVASTATIN CA 10 MG TABLET (FP) PO SCH (21:21)
[2019-03-13] MEDS: HEPARIN NA (PORCINE) 5,000 UNITS/ML 1ML VIAL SQ SCH ×3 (06:27→22:12)
[2019-03-13 07:38] LABS: ALBUMIN 3.5 g/dl (3.4-5.0); BILIRUBIN,TOTAL 1.7 mg/dL (0.2-1); BLOOD UREA NITROGEN 10.6 mg/dL (7-18); CALCIUM 9.1 mg/dL (8.5-10.1); CREATININE 0.8 mg/dL (0.55-1.3); POTASSIUM 3.9 mmol/L (3.5-5.1); TOT PROT 6.7 g/dl (6.4-8.2)
[2019-03-13 11:17] LABS: HEMATOCRIT 25.8 % (35.4-49); HEMOGLOBIN 9.2 GM/dL (11.7-16.9); MCH 36.1 pg (25.7-33.7); MCHC 35.7 g/dl (32.0-35.9); MEAN PLT VOLUME 7.2 fl (7.5-11.1); PLATELET COUNT 272 K/MM3 (134-434); RBC 2.55 M/mm3 (4.00-5.60); WHITE BLOOD COUNT 8.7 K/mm3 (4.0-10.0)
--- NOTE | 2019-03-13 11:25 | PN ---
Progress Note (short form) - Note Progress Note: Patient seen in follow up. No new complaints. No significant events overnight. Inpatient Meds reviewed. Current Medications Generic Name Dose Route Start Last Admin Trade Name Rico PRN Reason Stop Dose Admin Allopurinol 300 mg 03/13/19 10:00 Zyloprim - PO DAILY AMANDA Finasteride 5 mg 03/10/19 14:45 03/12/19 09:39 Proscar - PO 5 mg DAILY AMANDA Administration Heparin Sodium (Porcine) 5,000 unit 03/12/19 22:00 03/13/19 06:27 Heparin - SQ 5,000 unit TID AMANDA Administration Losartan Potassium 25 mg 03/10/19 14:45 03/12/19 09:39 Cozaar - PO 25 mg DAILY AMANDA Administration Pantoprazole Sodium 40 mg 03/13/19 10:00 Protonix - PO DAILY AMANDA Prednisone 80 mg 03/13/19 10:00 Deltasone - PO DAILY AMANDA Rosuvastatin Calcium 10 mg 03/10/19 22:00 03/12/19 21:21 Crestor - PO 10 mg HS AMANDA Administration On Examination: Last Vital Signs Temp Pulse Resp BP Pulse Ox 97.9 F 85 20 143/79 95 03/13/19 06:00 03/13/19 06:00 03/13/19 06:00 03/13/19 06:00 03/12/19 21:00 General: In no acute distress, sitting in bed. Extremities: No pallor or icterus. No pedal edema. No palpable lymphadenopathy. CVS: S1, S2, regular, no gallop or murmur. Chest: good air entry bilaterally, clear Abdomen: Non-distended, non-tender, no palpable organomegaly. Neuro: Alert, non-focal, apathetic affect.. Labs: CBC, BMP 03/13/19 05:30 Assessment. History of mantle cell lymohoma, now with AIHA. Started standard PDN treatment yesterday (03/12) Will require daily monitoring - CBC/retics/LDH. High index of suspicion for recurrence of his lymphoproliferative neoplasm. Will try obtain more information regarding that. PET/CT and bone marriow biopsy will be informative, but would hold off pending discussion with his treating oncologist. Mona
[2019-03-13] MEDS: predniSONE 20 MG TABLET (UD) PO SCH (11:56)
[2019-03-13] MEDS: LOSARTAN POTASSIUM 25 MG TABLET PO SCH (11:56)
[2019-03-13] MEDS: ALLOPURINOL 300 MG TABLET (FP) PO SCH (11:56)
[2019-03-13] MEDS: FINASTERIDE 5 MG TABLET (FP) PO SCH (11:56)
[2019-03-13] MEDS: PANTOPRAZOLE 40 MG TABLET (FP) PO SCH (11:57)
--- NOTE | 2019-03-13 14:06 | PN ---
Teaching Attending Note Name of Resident: Marilynn Richey ATTENDING PHYSICIAN STATEMENT I saw and evaluated the patient. I reviewed the resident's note and discussed the case with the resident. I agree with the resident's findings and plan as documented. SUBJECTIVE: no pain, no fever . no events over night OBJECTIVE: NAD, slow responses and flat affect. CV: RRR Lungs: CTAB Abd: soft, NT, ND, NL Bs. Ext: No edema or erythema ASSESSMENT AND PLAN: 69 y/o man with h/o GI bleed , diverticulosis and internal hemorrhoids, mantle cell lymphoma and follicular lymphoma, HTN, HLP, and other medical problems who presented with a fall and was found to have anemia 1- Fall. likely mechanical 2- Hemolytic anemia: - Hapto is low supporting the diagnosis - Cont prednisone and allopurinol - follow K, Phos, UA . LDH , Retic - PPI 3- HTN: cont losartan. will take slightly elevated BP given his age and gait problems to avoid falls 4- Pulmonary nodules: f/u as out pt. were seen on CT form 09/04. DVT PX; SCDs . heparin sq
[2019-03-13 14:53] LABS: PHOSPHOROUS 4.2 mg/dL (2.5-4.9)
--- NOTE | 2019-03-13 17:49 | PN ---
Physical Exam: SUBJECTIVE: Patient seen and examined by the bedside, alert, not fully oriented , and cooperative. OBJECTIVE: Vital Signs Period Temp Pulse Resp BP Sys/Jimenez Pulse Ox Last 24 Hr 97.6 F-99 F 85-98 18-20 138-160/73-93 95 GENERAL: The patient is awake, alert, and fully oriented, in no acute distress. HEAD: Normal with no signs of trauma. EYES: PERRL, extraocular movements intact, sclera anicteric, conjunctiva clear. No ptosis. Mild proptosis. NECK: Trachea midline, full range of motion, supple. LUNGS: Breath sounds equal, clear to auscultation bilaterally, no wheezes, no crackles, no accessory muscle use. HEART: Regular rate and rhythm, S1, S2 without murmur, rub or gallop. ABDOMEN: Soft, nontender, nondistended, normoactive bowel sounds, no guarding, no rebound, no hepatosplenomegaly, no masses. EXTREMITIES: 2+ pulses, warm, well-perfused, no edema. NEUROLOGICAL: Normal speech, gait not observed. PSYCH: Normal mood, flat affect. SKIN: Warm, dry, normal turgor, no rashes or lesions noted Laboratory Results - last 24 hr 03/10/19 03/11/19 03/13/19 00:35 17:21 05:30 WBC 8.7 RBC 2.55 L Hgb 9.2 L Hct 25.8 L D MCV 101.0 H MCH 36.1 H D MCHC 35.7 RDW 15.0 Plt Count 272 D MPV 7.2 L Haptoglobin < 10 L Sodium Potassium Chloride Carbon Dioxide Anion Gap BUN Creatinine Est GFR (CKD-EPI)AfAm Est GFR (CKD-EPI)NonAf Random Glucose Calcium Phosphorus Total Bilirubin AST ALT Alkaline Phosphatase Total Protein Albumin Blood Type A POSITIVE Antibody Screen Negative Crossmatch See Detail 03/13/19 05:30 WBC RBC Hgb Hct MCV MCH MCHC RDW Plt Count MPV Haptoglobin Sodium 141 Potassium 3.9 Chloride 109 H Carbon Dioxide 25 Anion Gap 7 L BUN 10.6 Creatinine 0.8 Est GFR (CKD-EPI)AfAm 104.90 Est GFR (CKD-EPI)NonAf 90.51 Random Glucose 112 H Calcium 9.1 Phosphorus 4.2 Total Bilirubin 1.7 H AST 54 H ALT 58 Alkaline Phosphatase 108 Total Protein 6.7 Albumin 3.5 Blood Type Antibody Screen Crossmatch Active Medications Generic Name Dose Route Start Last Admin Trade Name Rico PRN Reason Stop Dose Admin Allopurinol 300 mg 03/13/19 10:00 03/13/19 11:56 Zyloprim - PO 300 mg DAILY AMANDA Administration Finasteride 5 mg 03/10/19 14:45 03/13/19 11:56 Proscar - PO 5 mg DAILY AMANDA Administration Heparin Sodium (Porcine) 5,000 unit 03/12/19 22:00 03/13/19 15:39 Heparin - SQ 5,000 unit TID AMANDA Administration Losartan Potassium 25 mg 03/10/19 14:45 03/13/19 11:56 Cozaar - PO 25 mg DAILY AMANDA Administration Pantoprazole Sodium 40 mg 03/13/19 10:00 03/13/19 11:57 Protonix - PO 40 mg DAILY AMANDA Administration Prednisone 80 mg 03/13/19 10:00 03/13/19 11:56 Deltasone - PO 80 mg DAILY AMANDA Administration Rosuvastatin Calcium 10 mg 03/10/19 22:00 03/12/19 21:21 Crestor - PO 10 mg HS AMANDA Administration ASSESSMENT/PLAN: 69 year old male with PMH significant for mantle cell lymphoma, follicular cell lymphoma(s/p chemotherapy x6 sessions, last in January 2018), HTN, HLD, and right eye blindness presented to the ER after a fall no LOC, no head injury)and was admitted for anemia workup. #Hemolytic anemia likely due to active lymphoma -Heme consult: Likely hemolytic anemia, start allupurinol and steroids -Allopurinol 300mg OD to prevent high uric acid after cell lysis, Prednisone 80mg PO OD, Protonix 40mg PO OD -Follow H&H to check for anemia, transfuse for Hgb <7, unless actively bleeding -LDH elevated at 521, low haptoglobin along with splenomegaly on USG suggestive if hemolytic process -Follow Phos (might be elevated after cell lysis) -GI: no need for colonoscopy, done last month -FOBT +, s/p venofer 250mg BID #Hx of HLD -Crestor 10mg OD #Hx of HTN -Losartan 25mg OD #Fall - Resolved, no further workup indicated #Pulmonary nodules -Seen on CT from 09/04/2018 -F/u as out patient #DVT ppx -SCDs #FEN - Regular diet Visit type - Emergency Visit Emergency Visit: Yes ED Registration Date: 03/10/19 Care time: The patient presented to the Emergency Department on the above date and was hospitalized for further evaluation of their emergent condition. - New Patient This patient is new to me today: No - Critical Care Critical Care patient: No - Discharge Referral Referred to [facility] Med [facility].C.: No ATTENDING PHYSICIAN STATEMENT I saw and evaluated the patient. I reviewed the resident's note and discussed the case with the resident. I agree with the resident's findings and plan as documented. SUBJECTIVE: OBJECTIVE: ASSESSMENT AND PLAN:
[2019-03-13] MEDS: ROSUVASTATIN CA 10 MG TABLET (FP) PO SCH (22:12)
[2019-03-14] MEDS: HEPARIN NA (PORCINE) 5,000 UNITS/ML 1ML VIAL SQ SCH ×3 (06:37→21:11)
[2019-03-14 08:27] LABS: BASO % 0.3 % (0-2.0); LYMPH % 19.3 % (8-40); MCH 39.4 pg (25.7-33.7); MCHC 37.4 g/dl (32.0-35.9); MEAN CELL VOLUME 105.4 fl (80-96); MEAN PLT VOLUME 7.3 fl (7.5-11.1); MONO % 6.8 % (3.8-10.2); NEUT % 73.6 % (42.8-82.8); PLATELET COUNT 294 K/MM3 (134-434); RBC 2.28 M/mm3 (4.00-5.60); RDW 15.2 % (11.9-15.9); RETICULOCYTES 5.88 % (0.5-1.5); WHITE BLOOD COUNT 9.3 K/mm3 (4.0-10.0)
[2019-03-14 08:31] LABS: CALCIUM 8.7 mg/dL (8.5-10.1); CREATININE 0.9 mg/dL (0.55-1.3); URIC ACID 3.8 mg/dL (2.6-7.2)
[2019-03-14] MEDS: LOSARTAN POTASSIUM 25 MG TABLET PO SCH (09:42)
[2019-03-14] MEDS: predniSONE 20 MG TABLET (UD) PO SCH (09:42)
[2019-03-14] MEDS: PANTOPRAZOLE 40 MG TABLET (FP) PO SCH (09:43)
[2019-03-14] MEDS: FINASTERIDE 5 MG TABLET (FP) PO SCH (09:43)
[2019-03-14] MEDS: ALLOPURINOL 300 MG TABLET (FP) PO SCH (09:43)
[2019-03-14 13:13] LABS: ANISOCYTOSIS 1+; MACROCYTOSIS 1+; OVALOCYTE 1+; PLATELET ESTIMATE ADEQUATE
--- NOTE | 2019-03-14 14:33 | PN ---
Progress Note (short form) - Note Progress Note: Subjective: no pain, no SOB , no events overnight Objective: Vital Signs: Last Vital Signs Temp Pulse Resp BP Pulse Ox 97.7 F 89 20 145/79 98 03/14/19 13:22 03/14/19 13:22 03/14/19 13:22 03/14/19 13:22 03/14/19 09:00 Laboratory Results - last 24 hr 03/10/19 03/13/19 03/14/19 00:35 05:30 06:27 WBC RBC Hgb Hct MCV MCH MCHC RDW Plt Count MPV Absolute Neuts (auto) Neutrophils % Lymphocytes % Monocytes % Eosinophils % Basophils % Nucleated RBC % Platelet Estimate Polychromasia Anisocytosis Macrocytosis Ovalocytes Retic Count Sodium 142 Potassium 4.0 Chloride 110 H Carbon Dioxide 25 Anion Gap 7 L BUN 20.0 H Creatinine 0.9 Est GFR (CKD-EPI)AfAm 99.94 Est GFR (CKD-EPI)NonAf 86.23 Random Glucose 93 Uric Acid 3.8 Calcium 8.7 Phosphorus 4.2 LD Total 513 H Blood Type A POSITIVE Antibody Screen Negative Crossmatch See Detail 03/14/19 06:28 WBC 9.3 RBC 2.28 L Hgb 9.0 L Hct 24.0 L MCV 105.4 H MCH 39.4 H MCHC 37.4 H RDW 15.2 Plt Count 294 MPV 7.3 L Absolute Neuts (auto) 6.9 Neutrophils % 73.6 Lymphocytes % 19.3 Monocytes % 6.8 Eosinophils % 0.0 D Basophils % 0.3 Nucleated RBC % 0 Platelet Estimate Adequate Polychromasia 1+ Anisocytosis 1+ Macrocytosis 1+ Ovalocytes 1+ Retic Count 5.88 H D Sodium Potassium Chloride Carbon Dioxide Anion Gap BUN Creatinine Est GFR (CKD-EPI)AfAm Est GFR (CKD-EPI)NonAf Random Glucose Uric Acid Calcium Phosphorus LD Total Blood Type Antibody Screen Crossmatch Physical Exam: NAD, slow responses and flat affect. CV: RRR Lungs: CTAB Abd: soft, NT, ND, NL Bs. Ext: No edema or erythema ASSESSMENT AND PLAN: 69 y/o man with h/o GI bleed , diverticulosis and internal hemorrhoids, mantle cell lymphoma and follicular lymphoma, HTN, HLP, and other medical problems who presented with a fall and was found to have anemia 1- Fall. likely mechanical 2- Hemolytic anemia: - cont prednisone and allopurinol -Hb improved . retic count noted . will follow - follow K, Phos, UA . LDH , Retic - PPI 3- HTN: cont losartan. 4- Pulmonary nodules: f/u as out pt. were seen on CT form 09/04. DVT PX; SCDs . heparin sq Visit type - Emergency Visit Emergency Visit: Yes ED Registration Date: 03/10/19 Care time: The patient presented to the Emergency Department on the above date and was hospitalized for further evaluation of their emergent condition. - New Patient This patient is new to me today: No - Critical Care Critical Care patient: No
[2019-03-14] MEDS: ROSUVASTATIN CA 10 MG TABLET (FP) PO SCH (21:11)
--- NOTE | 2019-03-14 22:51 | PN ---
Progress Note (short form) - Note Progress Note: Patient seen in follow up. No new complaints. No significant events overnight. Inpatient Meds reviewed. Current Medications Allopurinol (Zyloprim -) 300 mg PO DAILY [facility] Last Admin: 03/14/19 09:43 Dose: 300 mg Finasteride (Proscar -) 5 mg PO DAILY [facility] Last Admin: 03/14/19 09:43 Dose: 5 mg Heparin Sodium (Porcine) (Heparin -) 5,000 unit SQ TID [facility] Last Admin: 03/14/19 21:11 Dose: 5,000 unit Losartan Potassium (Cozaar -) 25 mg PO DAILY [facility] Last Admin: 03/14/19 09:42 Dose: 25 mg Pantoprazole Sodium (Protonix -) 40 mg PO DAILY [facility] Last Admin: 03/14/19 09:43 Dose: 40 mg Prednisone (Deltasone -) 80 mg PO DAILY [facility] Last Admin: 03/14/19 09:42 Dose: 80 mg Rosuvastatin Calcium (Crestor -) 10 mg PO HS [facility] Last Admin: 03/14/19 21:11 Dose: 10 mg On Examination: Last Vital Signs Temp Pulse Resp BP Pulse Ox 97.9 F 81 18 141/70 95 03/14/19 21:00 03/14/19 21:00 03/14/19 21:00 03/14/19 21:00 03/14/19 21:00 General: In no acute distress, sitting eating in solarium with Extremities: No pallor or icterus. No pedal edema. Palpable nodule R medial upper extremity CVS: S1, S2, regular, no gallop or murmur. Chest: good air entry bilaterally, clear Abdomen: Non-distended, non-tender, no palpable organomegaly. Neuro: Alert, non-focal, apathetic affect.. Labs: CBC, BMP 03/14/19 06:28 03/14/19 06:27 Assessment. History of previously treated mantle cell lymphoma, now with AIHA. Started standard PDN treatment - 03/12 - no response yet - continue. Will require daily monitoring - CBC/retics/LDH. More history obtained from - recurrence of his Mantle cell lymphoma has been confirmed. In light of his poor performance status aggressive chemotherapy has been eschewed. Apparently also recurrence of a follicular lymphoma (?independent from the MCL) - well known to his oncologist at [place] - Dr Murray - all treatment decisions deferred to him.
[2019-03-15] MEDS: HEPARIN NA (PORCINE) 5,000 UNITS/ML 1ML VIAL SQ SCH ×3 (05:10→21:27)
[2019-03-15 07:43] LABS: HEMATOCRIT 24.8 % (35.4-49); HEMOGLOBIN 9.2 GM/dL (11.7-16.9); MCH 38.9 pg (25.7-33.7); MEAN CELL VOLUME 105.1 fl (80-96); MEAN PLT VOLUME 6.7 fl (7.5-11.1); PLATELET COUNT 306 K/MM3 (134-434); RBC 2.36 M/mm3 (4.00-5.60); RETICULOCYTES 7.13 % (0.5-1.5)
[2019-03-15 08:06] LABS: MAGNESIUM 2.2 mg/dL (1.8-2.4); PHOSPHOROUS 3.3 mg/dL (2.5-4.9); POTASSIUM 3.8 mmol/L (3.5-5.1)
[2019-03-15] MEDS: predniSONE 20 MG TABLET (UD) PO SCH (09:54)
[2019-03-15] MEDS: FINASTERIDE 5 MG TABLET (FP) PO SCH (09:54)
[2019-03-15] MEDS: ALLOPURINOL 300 MG TABLET (FP) PO SCH (09:54)
[2019-03-15] MEDS: LOSARTAN POTASSIUM 25 MG TABLET PO SCH (09:54)
[2019-03-15] MEDS: PANTOPRAZOLE 40 MG TABLET (FP) PO SCH (09:54)
--- NOTE | 2019-03-15 14:32 | PN ---
Teaching Attending Note Name of Resident: Ke New ATTENDING PHYSICIAN STATEMENT I saw and evaluated the patient. I reviewed the resident's note and discussed the case with the resident. I agree with the resident's findings and plan as documented. SUBJECTIVE: no fever or chills. No NEELY . no pain OBJECTIVE: NAD, flat affect. CV: RRR Lungs: CTAB Abd: soft, NT, ND, NL Bs. Ext: No edema or erythema. ASSESSMENT AND PLAN: 69 y/o man with h/o GI bleed , diverticulosis and internal hemorrhoids, mantle cell lymphoma and follicular lymphoma, HTN, HLP, and other medical problems who presented with a fall and was found to have anemia 1- Fall. likely mechanical. 2- Hemolytic anemia: - cont prednisone and allopurinol - stable Hb. - follow K, Phos, UA . LDH , Retic - PPI 3- HTN: cont losartan. 4- Pulmonary nodules: f/u as out pt. DVT PX; SCDs. heparin sq
--- NOTE | 2019-03-15 18:43 | PN ---
Physical Exam: SUBJECTIVE: Patient seen and examined by the bedside, alert, not fully oriented , and cooperative. OBJECTIVE: Vital Signs Period Temp Pulse Resp BP Sys/Jimenez Pulse Ox Last 24 Hr 97.5 F-98.1 F 81-98 14-20 141-156/70-92 95-97 GENERAL: The patient is awake, alert, and fully oriented, in no acute distress. HEAD: Normal with no signs of trauma. EYES: PERRL, extraocular movements intact, sclera anicteric, conjunctiva clear. No ptosis. Mild proptosis. NECK: Trachea midline, full range of motion, supple. LUNGS: Breath sounds equal, clear to auscultation bilaterally, no wheezes, no crackles, no accessory muscle use. HEART: Regular rate and rhythm, S1, S2 without murmur, rub or gallop. ABDOMEN: Soft, nontender, nondistended, normoactive bowel sounds, no guarding, no rebound, no hepatosplenomegaly, no masses. EXTREMITIES: 2+ pulses, warm, well-perfused, no edema. NEUROLOGICAL: Normal speech, gait not observed. PSYCH: Normal mood, flat affect. SKIN: Warm, dry, normal turgor, no rashes or lesions noted Laboratory Results - last 24 hr 03/15/19 03/15/19 07:00 07:00 WBC 9.0 RBC 2.36 L Hgb 9.2 L Hct 24.8 L MCV 105.1 H MCH 38.9 H MCHC 37.0 H RDW 15.0 Plt Count 306 MPV 6.7 L Retic Count 7.13 H D Potassium 3.8 Phosphorus 3.3 Magnesium 2.2 LD Total 480 H Active Medications Generic Name Dose Route Start Last Admin Trade Name Freq PRN Reason Stop Dose Admin Allopurinol 300 mg 03/13/19 10:00 03/15/19 09:54 Zyloprim - PO 300 mg DAILY AMANDA Administration Finasteride 5 mg 03/10/19 14:45 03/15/19 09:54 Proscar - PO 5 mg DAILY AMANDA Administration Heparin Sodium (Porcine) 5,000 unit 03/12/19 22:00 03/15/19 13:35 Heparin - SQ 5,000 unit TID AMANDA Administration Losartan Potassium 25 mg 03/10/19 14:45 03/15/19 09:54 Cozaar - PO 25 mg DAILY AMANDA Administration Pantoprazole Sodium 40 mg 03/13/19 10:00 03/15/19 09:54 Protonix - PO 40 mg DAILY AMANDA Administration Prednisone 80 mg 03/13/19 10:00 03/15/19 09:54 Deltasone - PO 80 mg DAILY AMANDA Administration Rosuvastatin Calcium 10 mg 03/10/19 22:00 03/14/19 21:11 Crestor - PO 10 mg HS AMANDA Administration ASSESSMENT/PLAN: 69 year old male with PMH significant for mantle cell lymphoma, follicular cell lymphoma(s/p chemotherapy x6 sessions, last in January 2018), HTN, HLD, and right eye blindness presented to the ER after a fall no LOC, no head injury)and was admitted for anemia workup. #Hemolytic anemia likely due to active lymphoma -Heme consult: Likely hemolytic anemia, start allupurinol and steroids -Allopurinol 300mg OD to prevent high uric acid after cell lysis, Prednisone 80mg PO OD, Protonix 40mg PO OD -Follow H&H to check for anemia, transfuse for Hgb <7, unless actively bleeding -LDH elevated at 521, low haptoglobin along with splenomegaly on USG suggestive if hemolytic process -Follow Phos ,3.3 normal LD 513 H, 480 H, #Hx of HLD -Crestor 10mg OD #Hx of HTN -Losartan 25mg OD #Fall - Resolved, no further workup indicated #Pulmonary nodules -Seen on CT from 09/04/2018 -F/u as out patient #DVT ppx -SCDs #FEN - Regular diet Visit type - Emergency Visit Emergency Visit: Yes ED Registration Date: 03/10/19 Care time: The patient presented to the Emergency Department on the above date and was hospitalized for further evaluation of their emergent condition. - New Patient This patient is new to me today: No - Critical Care Critical Care patient: No - Discharge Referral Referred to [facility] Med [facility] No ATTENDING PHYSICIAN STATEMENT I saw and evaluated the patient. I reviewed the resident's note and discussed the case with the resident. I agree with the resident's findings and plan as documented. SUBJECTIVE: OBJECTIVE: ASSESSMENT AND PLAN:
--- NOTE | 2019-03-15 19:04 | PN ---
Progress Note (short form) - Note Progress Note: Patient seen and examined at bedside Patient more alert and animated Hb relatively stable On prednisone therapy Last Vital Signs Temp Pulse Resp BP Pulse Ox 98.1 F 98 H 20 145/78 97 03/15/19 13:59 03/15/19 13:59 03/15/19 13:59 03/15/19 13:59 03/15/19 09:00 HEENT: GERALD, EOM Intact Cor: RSR, No murmurs, No gallops Lungs: poor inspiratory effort Abd: Soft, Normal bowel sounds, No organomegaly Ext:No significant edema Skin: No rashes, Integument intact CBC, BMP 03/15/19 07:00 03/15/19 07:00 Current Medications Generic Name Dose Route Start Last Admin Trade Name Freq PRN Reason Stop Dose Admin Allopurinol 300 mg 03/13/19 10:00 03/15/19 09:54 Zyloprim - PO 300 mg DAILY AMANDA Administration Finasteride 5 mg 03/10/19 14:45 03/15/19 09:54 Proscar - PO 5 mg DAILY AMANDA Administration Heparin Sodium (Porcine) 5,000 unit 03/12/19 22:00 03/15/19 13:35 Heparin - SQ 5,000 unit TID AMANDA Administration Losartan Potassium 25 mg 03/10/19 14:45 03/15/19 09:54 Cozaar - PO 25 mg DAILY AMANDA Administration Pantoprazole Sodium 40 mg 03/13/19 10:00 03/15/19 09:54 Protonix - PO 40 mg DAILY AMANDA Administration Prednisone 80 mg 03/13/19 10:00 03/15/19 09:54 Deltasone - PO 80 mg DAILY AMANDA Administration Rosuvastatin Calcium 10 mg 03/10/19 22:00 03/14/19 21:11 Crestor - PO 10 mg HS AMANDA Administration Impression: Mantle cell lymphoma Follicular lymphoma Sandi positive hemolytic anemia HBP HPL Plan: is checking into [facility] in [place] for aftercare. She is checking to see if feasible to have frequent blod checks and physician monitoring for tapering of steroids . In interim, would continue to monitor. -- daily Hb/ LDH, retic Begin folate.
[2019-03-15] MEDS: FOLIC ACID 1 MG TABLET (FP) PO SCH (20:30)
[2019-03-15] MEDS: ROSUVASTATIN CA 10 MG TABLET (FP) PO SCH (21:26)
[2019-03-16] MEDS: HEPARIN NA (PORCINE) 5,000 UNITS/ML 1ML VIAL SQ SCH ×2 (06:23→15:30)
[2019-03-16 09:31] LABS: ALBUMIN 3.2 g/dl (3.4-5.0); BILIRUBIN,TOTAL 1.2 mg/dL (0.2-1); BLOOD UREA NITROGEN 18.5 mg/dL (7-18); CALCIUM 8.8 mg/dL (8.5-10.1); CREATININE 0.8 mg/dL (0.55-1.3); POTASSIUM 3.6 mmol/L (3.5-5.1); TOT PROT 6.3 g/dl (6.4-8.2)
[2019-03-16] MEDS: FOLIC ACID 1 MG TABLET (FP) PO SCH (09:40)
[2019-03-16] MEDS: LOSARTAN POTASSIUM 25 MG TABLET PO SCH (09:40)
[2019-03-16] MEDS: PANTOPRAZOLE 40 MG TABLET (FP) PO SCH (09:40)
[2019-03-16] MEDS: FINASTERIDE 5 MG TABLET (FP) PO SCH (09:40)
[2019-03-16] MEDS: ALLOPURINOL 300 MG TABLET (FP) PO SCH (09:41)
[2019-03-16] MEDS: predniSONE 20 MG TABLET (UD) PO SCH (09:41)
[2019-03-16 11:27] LABS: BASO % 0.2 % (0-2.0); EOS % 0.3 % (0-4.5); HEMATOCRIT 26.3 % (35.4-49); HEMOGLOBIN 8.9 GM/dL (11.7-16.9); LYMPH % 25.6 % (8-40); MCH 33.1 pg (25.7-33.7); MEAN CELL VOLUME 97.8 fl (80-96); MEAN PLT VOLUME 7.4 fl (7.5-11.1); MONO % 6.7 % (3.8-10.2); NEUT % 67.2 % (42.8-82.8); PLATELET COUNT 314 K/MM3 (134-434); RBC 2.68 M/mm3 (4.00-5.60); RDW 15.8 % (11.9-15.9); WHITE BLOOD COUNT 10.9 K/mm3 (4.0-10.0)
[2019-03-16 11:40] LABS: MCHC 33.8 g/dl (32.0-35.9)
[2019-03-16] MEDS ORDERED: LOSARTAN POTASSIUM 50 MG TABLET (FP) PO SCH (11:58)
--- NOTE | 2019-03-16 12:48 | PN ---
Teaching Attending Note Name of Resident: Jigna Flores ATTENDING PHYSICIAN STATEMENT I saw and evaluated the patient. I reviewed the resident's note and discussed the case with the resident. I agree with the resident's findings and plan as documented. SUBJECTIVE: no fever or chills , NOpain . spoke to at bedside OBJECTIVE: NAD. CV: RRR Lungs: CTAB Abd: soft, NT, ND, NL Bs. Ext: No edema or erythema. ASSESSMENT AND PLAN: 69 y/o man with h/o GI bleed, diverticulosis and internal hemorrhoids, mantle cell lymphoma and follicular lymphoma, HTN, HLP, and other medical problems who presented with a fall and was found to have anemia 1- Fall. likely mechanical. 2- Hemolytic anemia: - cont prednisone and allopurinol . prednisone to be tapered as out pt - stable Hb. - PPI 3- HTN: cont losartan. 4- Pulmonary nodules: f/u as out pt. DC to rehab today . d/w . d/w dr. Mcbride by resident
[2019-03-16 13:40] LABS: ANISOCYTOSIS 0; MACROCYTOSIS 1+; PLATELET ESTIMATE NORMAL; ROULEAU 1+
--- NOTE | 2019-03-16 14:18 | DS ---
Physical Exam: SUBJECTIVE: Patient seen and examined by the bedside. AOx1, in no acute distress. OBJECTIVE: Vital Signs Period Temp Pulse Resp BP Sys/Jimenez Pulse Ox Last 24 Hr 97.9 F-98.4 F 61-91 16-20 136-164/78-104 98-98 PHYSICAL EXAM GENERAL: The patient is AOx1 in no acute distress. HEAD: Normal with no signs of trauma. EYES: PERRL, extraocular movements intact, sclera anicteric, conjunctiva clear. ENT: Ears normal, nares patent, oropharynx clear without exudates, moist mucous membranes. NECK: Trachea midline, full range of motion, supple. LUNGS: Breath sounds equal, clear to auscultation bilaterally, no wheezes, no crackles, no accessory muscle use. HEART: Regular rate and rhythm, S1, S2 without murmur, rub or gallop. ABDOMEN: Soft, nontender, nondistended, normoactive bowel sounds, no guarding, no rebound, no hepatosplenomegaly, no masses. EXTREMITIES: 2+ pulses, warm, well-perfused, no edema. NEUROLOGICAL: Cranial nerves II through XII grossly intact. Normal speech, gait not observed. PSYCH: Normal mood, normal affect. SKIN: Warm, dry, normal turgor, no rashes or lesions noted. LABS Laboratory Results - last 24 hr 03/16/19 03/16/19 03/16/19 07:00 07:00 07:00 WBC 10.9 H RBC 2.68 L Hgb 8.9 L Hct 26.3 L MCV 97.8 H D MCH 33.1 D MCHC 33.8 RDW 15.8 Plt Count 314 MPV 7.4 L D Absolute Neuts (auto) 7.3 Neutrophils % 67.2 Lymphocytes % 25.6 D Monocytes % 6.7 Eosinophils % 0.3 D Basophils % 0.2 Nucleated RBC % 0 Retic Count 8.53 H D Sodium 143 Potassium 3.6 Chloride 110 H Carbon Dioxide 25 Anion Gap 8 BUN 18.5 H Creatinine 0.8 Est GFR (CKD-EPI)AfAm 104.90 Est GFR (CKD-EPI)NonAf 90.51 Random Glucose 80 Calcium 8.8 Total Bilirubin 1.2 H AST 35 ALT 53 Alkaline Phosphatase 93 LD Total 430 H Total Protein 6.3 L Albumin 3.2 L HOSPITAL COURSE: Date of Admission:03/10/19 69 year old male with PMH significant for mantle cell lymphoma, follicular cell lymphoma(s/p chemotherapy x6 sessions, last in January 2018), HTN, HLD, and right eye blindness presented to the ER after a fall no LOC, no head injury)and was admitted for anemia workup. Date of Discharge: 03/16/19 Pt DCed to [facility] for further management of neoplastic process. #Hemolytic anemia likely due to active lymphoma -Heme consult: Hemolytic anemia, started on Allopurinol 300mg OD to prevent high uric acid after cell lysis, Prednisone 80mg PO OD, Protonix 40mg PO OD -Followed H&H, been stable -LDH elevated at 521, low haptoglobin along with splenomegaly on USG suggestive if hemolytic process -Follow Phos ,3.3 normal LD 513 H, 480 H, #Hx of HLD -Crestor 10mg OD #Hx of HTN -Losartan 25mg OD #Fall - Resolved, no further workup indicated #Pulmonary nodules -Seen on CT from 09/04/2018 -F/u as out patient #DVT ppx -SCDs #FEN - Regular diet Minutes to complete discharge: 37 Discharge Summary Reason For Visit: ANEMIA, TRAUMATIC INJURY OF HEAD, LYMPHOMA, RECTAL Current Active Problems Follicular large cell lymphoma (Acute) Hemolytic anemia (Acute) HLD (hyperlipidemia) (Chronic) HTN (hypertension) (Chronic) Mantle cell lymphoma (Chronic) Condition: Improved - Instructions Diet, Activity, Other Instructions: You were admitted to the hospital because you fell down. While you were at the hospital, we found that you had a low level of iron in your blood. While you were here, we performed a scan of your head (CT scan), which showed no abnormalities. We also performed a scan of your abdomen (Ultrasound), which showed that your spleen is bigger than it should be, which is why we would like you to follow up with your archives director Since you do not have any urgent medical problems, you are being transferred to a group home facility where you will have routine blood work and given a Prednisone taper. Medications: -Please continue ALL your home medications as prescribed. -Your blood pressure was found to be high, so we have increased your Losartan to 50mg by mouth once per day. Please monitor your blood pressure daily at home. -Please take Allopurinol 300mg once per day -Please take Folic Acid 1 mg once per day -Please take your Prednisone as explained below: Prednisone 60mg by mouth once per day every day for 5 days (6 of the 10 mg pills per day every day from March 17 to March 21) Prednisone 50mg by mouth once per day every day for 5 days (5 of the 10 mg pills per day every day from March 22 to March 26) Prednisone 40mg by mouth once per day every day for 5 days (4 of the 10 mg pills per day every day from March 27 to March 31) Prednisone 30mg by mouth once per day every day for 5 days (3 of the 10 mg pills per day every day from April 01 to April 05) Prednisone 20mg by mouth once per day every day for 5 days (2 of the 10 mg pills per day every day from April 06 to April 10) Prednisone 10mg by mouth once per day every day for 5 days (1 of the 10 mg pills per day every day from April 11 to April 15) Follow up: -Please make an appointment with your PCP within one week -Please make an appointment with you Entry Level Administrative Assistant, Dr. Giraldo within one week. -Please make an appointment with your Oncologist, Dr. Murray within one week. Additional Information: Please return to the Emergency Department if you have any of the following: Abdominal pain that does not improve, shortness of breath, nausea, vomiting, diarrhea, bleeding that will not stop, or persistent headache. You need CBC, and BMP, Phos, uric acid, LDH, and reticulocyte count in 4 days. Referrals: MD Trevor [Other] - 1 Week MD Enzo [Other] - 1 Week Gregory cMbride MD [Staff Physician] - 1 Week Disposition: GROUP HOME FACILITY - Home Medications Comprehensive Discharge Medication List: Ambulatory Orders Rosuvastatin Calcium [Crestor] 10 mg PO DAILY 07/20/17 Finasteride [Proscar] 5 mg PO DAILY 12/12/18 Allopurinol [Zyloprim -] 300 mg PO DAILY tablet 03/16/19 Folic Acid - 1 mg PO DAILY tablet 03/16/19 Losartan Potassium [Cozaar -] 50 mg PO DAILY #30 tablet 03/16/19 Pantoprazole Sodium [Protonix -] 40 mg PO DAILY tablet.ec 03/16/19 Prednisone See Taper PO ASDIR #105 tablet 03/16/19 This patient is new to me today: No Emergency Visit: Yes ED Registration Date: 03/10/19 Care time: The patient presented to the Emergency Department on the above date and was hospitalized for further evaluation of their emergent condition. Critical Care patient: No - Discharge Referral Referred to [facility] No ATTENDING PHYSICIAN STATEMENT I saw and evaluated the patient. I reviewed the resident's note and discussed the case with the resident. I agree with the resident's findings and plan as documented. SUBJECTIVE: OBJECTIVE: ASSESSMENT AND PLAN:
[2019-03-16 14:55] VITALS: BP 142/82; PULSE 99; TEMP 98.9
--- NOTE | 2019-03-16 17:29 | PN ---
Progress Note (short form) - Note Progress Note: Patient seen and examined at bedside For discharge to rehab center on prednisone and tapering doses of steroids Last Vital Signs Temp Pulse Resp BP Pulse Ox 98.9 F 99 H 18 142/82 98 03/16/19 14:53 03/16/19 14:53 03/16/19 14:53 03/16/19 14:53 03/16/19 08:06 HEENT: GERALD, EOM Intact. widened palpebral fissure Oropharynx: No thrush, No mucositis Neck: Supple Cor: RSR, No murmurs, No gallops Lungs: Clear to P&A Abd: Soft, Normal bowel sounds, No organomegaly Ext:No significant edema Skin: No rashes, Integument intact CBC, BMP 03/16/19 07:00 03/16/19 07:00 Current Medications Generic Name Dose Route Start Last Admin Trade Name Freq PRN Reason Stop Dose Admin Allopurinol 300 mg 03/13/19 10:00 03/16/19 09:41 Zyloprim - PO 300 mg DAILY AMANDA Administration Finasteride 5 mg 03/10/19 14:45 03/16/19 09:40 Proscar - PO 5 mg DAILY AMANDA Administration Folic Acid 1 mg 03/15/19 19:15 03/16/19 09:40 Folic Acid - PO 1 mg DAILY AMANDA Administration Heparin Sodium (Porcine) 5,000 unit 03/12/19 22:00 03/16/19 15:30 Heparin - SQ 5,000 unit TID AMANDA Administration Losartan Potassium 50 mg 03/16/19 11:58 Cozaar - PO DAILY AMANDA Pantoprazole Sodium 40 mg 03/13/19 10:00 03/16/19 09:40 Protonix - PO 40 mg DAILY AMANDA Administration Prednisone 80 mg 03/13/19 10:00 03/16/19 09:41 Deltasone - PO 80 mg DAILY AMANDA Administration Rosuvastatin Calcium 10 mg 03/10/19 22:00 03/15/19 21:26 Crestor - PO 10 mg HS AMANDA Administration Impression: Sandi positive hemolytic anemia Mantle cell lymphoma Follicular lymphoma HBP HPL For discharge to SNF.
== END 2019-03-16 18:15 | DRG 841 ==
LOC: JER 21:18 → JERBED 03-10 02:18 → J7W 03-10 03:44
PROVIDERS: ADMIT Internal Medicine; ATTEND Internal Medicine
PROC: 30233N1 Transfusion of Nonautologous Red Blood Cells into Peripheral Vein, Percutaneous Approach (ICD-10-PCS; principal; 2019-03-10)
DX: C82.90 Follicular lymphoma, unspecified, unspecified site (principal); C83.10 Mantle cell lymphoma, unspecified site; D59.1 Other autoimmune hemolytic anemias; K92.2 Gastrointestinal hemorrhage, unspecified; W19.XXXA Unspecified fall, initial encounter; R63.4 Abnormal weight loss; R76.8 Other specified abnormal immunological findings in serum; I10 Essential (primary) hypertension; E78.5 Hyperlipidemia, unspecified; R91.1 Solitary pulmonary nodule; D75.89 Other specified diseases of blood and blood-forming organs; D64.9 Anemia, unspecified; K80.20 Calculus of gallbladder without cholecystitis without obstruction
CPT/HCPCS: 36415; 36430; 36511; 70450-TC; 72125-TC; 76705-TC; 80048; 80053; 80307; 81003; 82247; 82248; 82272; 82550; 82607; 82728; 82746; 83010; 83540; 83550; 83615; 83690; 83735; 84100; 84132; 84443; 84484; 84550; 85025; 85027; 85044; 86850; 86880; 86900; 86901; 86922; 93005; 93010; 97116-GP; 97162-GP; 99283-25; J1644; J7030; P9038; P9058